=== PATIENT | male | born 1995 | race Caucasian/White ===

== ENCOUNTER 2023-03-29 22:35 | Inpatient (IN) | payer SELFPAY ==
--- NOTE | 2023-03-29 | ECG_ITS ---
Test Reason : CHEST PAIN Blood Pressure : / mmHG Vent. Rate : 137 BPM Atrial Rate : 137 BPM P-R Int : 146 ms QRS Dur : 074 ms QT Int : 280 ms P-R-T Axes : 048 005 000 degrees QTc Int : 422 ms Artifact in tracing Sinus tachycardia Cannot rule out Inferior infarct , age undetermined Nonspecific ST and T wave abnormality Abnormal ECG No previous ECGs available Referred By: Generic ED Physician Electronically Signed By:TIFF DUMONT
[2023-03-29 22:50] VITALS: BP 133/88; PULSE 138; RESP 18; TEMP 37.9; O2SAT 97; BMI 39.9
[2023-03-29 22:55] LABS: MANUAL DIFF FLAG NO
[2023-03-29 22:56] LABS: Basophils Absolute Auto 0.1 X10*3/uL (0.0-0.2); Basophils Percent Auto 0.4 % (0-2); Eosinophils Percent Auto 0.2 % (0-4); Hematocrit 45.4 % (42.0-52.0); Hemoglobin 15.6 g/dl (14.0-18.0); Imm Gran Abs Auto 0.12 X10*3/uL (0.00-0.03); Imm Gran Pct Auto 0.7 % (0.0-0.4); Lymphocytes Absolute Auto 1.4 X10*3/uL (1.2-4.9); Lymphocytes Percent Auto 7.3 % (20-40); Mean Corpuscular HGB Conc 34.4 g/dl (31.0-36.0); Mean Corpuscular Hemoglobin 31.6 pg (27.0-33.0); Mean Corpuscular Volume 92.1 fL (80.0-98.0); Mean Platelet Volume 9.4 fL (9.4-12.4); Monocytes Absolute Auto 0.9 X10*3/uL (0.1-1.2); Monocytes Percent Auto 4.7 % (2-11); Neutrophils Percent Auto 86.7 % (45-73); Platelet Count 358 X10*3/uL (160-400); Red Blood Count 4.93 X10*6/uL (4.60-5.80); Red Cell Distribution Width 13.7 % (11.0-16.0); White Blood Count 18.4 X10*3/uL (4.8-10.8)
[2023-03-29 23:20] LABS: Troponin-I High Sensitivity < 2.7 ng/L (<3.5-35.0)
[2023-03-29 23:21] LABS: Alanine Aminotransferase 71 U/L (0-40); Albumin Level 4.5 g/dL (3.5-5.0); Alkaline Phosphatase 115 U/L (39-117); Anion Gap 26 (12-20); Aspartate Amino Transferase 62 U/L (5-37); Bilirubin Total 0.6 mg/dL (0.0-1.0); Blood Urea Nitrogen 6 mg/dL (9-16); Calcium 8.8 mg/dL (8.4-10.2); Carbon Dioxide 17 mmol/L (22-29); Chloride 97 mmol/L (96-108); Creatinine Clr Calc Pharmacy 161.2; Estimated Glomerular Filt Rate > 60; Glucose Random 92 mg/dL (60-115); Potassium 3.9 mmol/L (3.3-5.1); Sodium 136 mmol/L (135-145); Total Protein 7.8 g/dL (6.5-8.0)
[2023-03-30] VITALS (8 sets, daily range): BP systolic 112–148; BP diastolic 60–81; PULSE 110–150; RESP 18–28; TEMP 36.6–38.9; O2SAT 95–98
--- NOTE | 2023-03-30 01:15 | ED.CHESTPAIN ---
HPI - Chest Pain General Chief Complaint: Chest Pain Stated Complaint: chest palpitations/ blood in stool Time Seen by Provider: 03/30/23 01:11 History of Present Illness HPI narrative: Patient is a 27-year-old male with a history of alcohol abuse. Feels heart palpitation. Generalized malaise weakness. Sore throat. Nausea vomiting. Patient from home. Positive sick contact . 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 Patient also admits to using alcohol tonight. Feels very tired and weak. Related Data Home Medications Medication Instructions Recorded Confirmed No Known Home Meds 03/30/23 03/30/23 Allergies Allergy/AdvReac Type Severity Reaction Status Date / Time No Known Allergies Allergy Verified 03/29/23 22:49 Review of Systems Review of Systems: Positive generalized malaise weakness Yes all other systems are reviewed and are negative [facility] Past Medical History Attestation statement: The following information was validated with the patient. Medical History Alcohol abuse Surgical History (Updated 03/30/23 @ 05:40 by Andrew Shabazz MD) No pertinent past surgical history Social History Social History (Updated 03/30/23 @ 05:40 by Andrew Shabazz MD) Household Members: Family Housing: House Do you presently have visiting nurse or other home services: No Alcohol intake: current Patient Tobacco Use Status: Never used Tobacco Physical Exam Vital Signs: Vital Signs: Last Vital Signs Temp 98.3 F 03/31/23 04:00 Pulse 94 03/31/23 04:00 Resp 18 03/31/23 04:00 BP 132/84 03/31/23 04:00 Pulse Ox 96 03/31/23 04:00 O2 Del Method Room Air 03/31/23 04:00 BMI result Body Mass Index 39.9 Appearance: Alert. Oriented X3. No acute distress. Eyes: Pupils equal, round and reactive to light. ENT: Pharynx normal. Neck: Normal inspection. Neck supple. No lymph nodes noted. No crepitus CVS: Tachycardic and regular Respiratory: No respiratory distress. Breath sounds normal. No Wheezing. No rales Abdomen: Soft and nontender. No rigidity. No distention. good BS x4 Skin: Skin warm and dry. Normal skin color. Normal skin turgor. Extremities: No lower extremity edema. Neurovascular intact to all extremities. No Lacerations. No Rash Neuro: Oriented X 3. No motor deficit. No sensory deficit. Moving all extermities. No slurred speech Medications Administered Generic Name Dose Route Start Last Admin Trade Name Radha PRN Reason Stop Dose Admin Acetaminophen 650 mg 03/30/23 05:32 03/30/23 21:20 Acetaminophen 325 Mg Tablet PO 650 mg Q6H PRN Administration Pain, Mild (Pain Scale 1-3) Amoxicillin 500 mg 03/30/23 06:00 03/31/23 05:58 Amoxicillin 500 Mg Capsule PO 500 mg Q8H VIOLET Administration Enoxaparin Sodium 40 mg 03/30/23 09:00 03/30/23 08:45 Enoxaparin Sodium 40 Mg/0.4 Ml Syringe SUBCUT 40 mg Q24H VIOLET Administration Folic Acid 1 mg 03/30/23 09:00 03/30/23 08:46 Folic Acid 1 Mg Tablet PO 1 mg DAILY VIOLET Administration Lactated Ringer's 1,000 mls @ 100 mls/hr 03/30/23 05:45 03/31/23 00:25 Lr IVCONT 100 mls/hr .Q10H VIOLET Administration Melatonin 6 mg 03/31/23 00:25 03/31/23 01:33 Melatonin 3 Mg Tablet PO 6 mg BEDTIME PRN Administration Insomnia Ondansetron HCl 4 mg 03/30/23 05:32 03/30/23 20:20 Ondansetron Hcl 4 Mg/2 Ml Vial IVPUSH 4 mg Q8H PRN Administration Nausea and Vomiting Pantoprazole Sodium 40 mg 03/30/23 06:30 03/31/23 05:59 Pantoprazole Sodium 40 Mg/10 Ml Vial IVPUSH 40 mg BID@0630,1630 VIOLET Administration Phenobarbital 45 mg 03/30/23 21:00 03/30/23 21:15 Phenobarbital 15 Mg Tablet PO 04/01/23 09:01 45 mg BID VIOLET Administration Protocol Sodium Chloride 3 ml 03/30/23 08:00 03/30/23 21:42 0.9 % Sodium Chloride Flush 3 Ml Syringe IVFLUSH Not Given QSHIFT VIOLET Thiamine HCl 100 mg 03/30/23 09:00 03/30/23 08:46 Thiamine Hcl 100 Mg Tablet PO 100 mg DAILY VIOLET Administration Discontinued Medications Generic Name Dose Route Start Last Admin Trade Name Radha PRN Reason Stop Dose Admin Acetaminophen 650 mg 03/30/23 04:26 03/30/23 04:40 Acetaminophen 325 Mg Tablet PO 03/30/23 04:27 650 mg ONCE ONE Administration Sodium Chloride 2,000 mls @ 999 mls/hr 03/30/23 02:45 03/30/23 06:45 Ns IV 03/30/23 04:45 Infused .Q2H1M VIOLET Infusion Sodium Chloride 1,000 mls @ 999 mls/hr 03/30/23 03:45 03/30/23 06:45 Ns IV 03/30/23 04:45 Infused .Q1H1M VIOLET Infusion Sodium Chloride 1,000 mls @ 999 mls/hr 03/30/23 03:45 03/30/23 06:45 Ns IV 03/30/23 04:45 Infused .Q1H1M VIOLET Infusion Ceftriaxone Sodium 1 gm/ 50 mls @ 100 mls/hr 03/30/23 04:19 03/30/23 06:45 Sodium Chloride IV 03/30/23 04:48 Infused ONCE ONE Infusion Sodium Chloride 1,000 mls @ 999 mls/hr 03/30/23 12:00 03/30/23 13:58 Ns IV 03/30/23 13:00 Infused .Q1H1M VIOLET Infusion Ketorolac Tromethamine 30 mg 03/30/23 04:43 03/30/23 06:35 Ketorolac Tromethamine 30 Mg/Ml Vial IVPUSH 03/30/23 04:44 30 mg ONCE ONE Administration Ondansetron HCl 4 mg 03/30/23 04:37 03/30/23 04:40 Ondansetron Hcl 4 Mg/2 Ml Vial IVPUSH 03/30/23 04:38 4 mg ONCE ONE Administration Phenobarbital Sodium 295.1 mg 03/30/23 06:30 03/30/23 06:42 Phenobarbital Sodium 130 Mg/Ml Im Once IM 03/30/23 06:31 295.1 mg ONCE ONE Administration Protocol Phenobarbital Sodium 221 mg 03/30/23 09:30 03/30/23 11:52 Phenobarbital Sodium 130 Mg/Ml Vial Im Q3hx2 IM 03/30/23 12:31 221 mg Q3H VIOLET Administration Protocol Medical Decision Making Medical Decision Making MDM Narrative: Patient's EKG showed a sinus pattern heart rate is 140 FL QRS QT within normal limits is no acute ST segment patient feels very tired weak. Labs ordered. Shows a significant anion gap of 26. Patient positive ETOH. Alcohol level 333. Likely causing some level of dehydration generalized malaise. Patient has AKA likely causing part of the problem. Will give IV fluids. Patient will be admitted for further evaluation and hydration. Patient's strep came back positive we will give penicillin. Patient not shaking positive tachycardia generalized malaise. Likely caused by dehydration. Less likely to be in withdrawals patient's alcohol is extremely high. Patient has mono screen was negative Differential Diagnosis Differential Diagnoses: The differential diagnosis associated with the presentation includes Strep pharyngitis, viral syndrome, alcoholic ketoacidosis, dehydration, nausea vomiting, alcohol intoxication Admission/Observation Consideration of admission/observation: Escalation of care including admission/observation considered Consult Healthcare Provider Management of the patient was discussed with: Hospitalist Lab Data [facility] Lab Attestation statement: I reviewed the patient's lab results. 03/29/23 22:46 03/29/23 22:46 Labs: Lab Results 03/29/23 03/29/23 03/29/23 Range/Units 22:46 22:46 22:46 WBC 18.4 H (4.8-10.8) X10*3/uL RBC 4.93 (4.60-5.80) X10*6/uL Hgb 15.6 (14.0-18.0) g/dl Hct 45.4 (42.0-52.0) % MCV 92.1 (80.0-98.0) fL MCH 31.6 (27.0-33.0) pg MCHC 34.4 (31.0-36.0) g/dl RDW 13.7 (11.0-16.0) % Plt Count 358 (160-400) X10*3/uL MPV 9.4 (9.4-12.4) fL Immature Gran % (Auto) 0.7 H (0.0-0.4) % Neut % (Auto) 86.7 H (45-73) % Lymph % (Auto) 7.3 L (20-40) % [place] % (Auto) 4.7 (2-11) % Eos % (Auto) 0.2 (0-4) % Baso % (Auto) 0.4 (0-2) % Lymph # (Auto) 1.4 (1.2-4.9) X10*3/uL [place] # (Auto) 0.9 (0.1-1.2) X10*3/uL Eos # (Auto) 0.0 (0.0-0.4) X10*3/uL Baso # (Auto) 0.1 (0.0-0.2) X10*3/uL Abs Immat Gran (auto) 0.12 H (0.00-0.03) X10*3/uL Absolute Neuts (auto) 16.0 H (2.0-8.3) x10*3/uL Absolute Nucleated RBC 0.000 (0.0-0.012) X10*3/uL Nucleated RBC % (auto) 0.0 (0.0-0.2) /100WBC Sodium 136 (135-145) mmol/L Potassium 3.9 (3.3-5.1) mmol/L Chloride 97 (96-108) mmol/L Carbon Dioxide 17 L (22-29) mmol/L Anion Gap 26 H (12-20) BUN 6 L (9-16) mg/dL Creatinine 0.79 (0.5-1.4) mg/dL Estim Creat Clear Calc 161.2 Estimated GFR > 60 Random Glucose 92 (60-115) mg/dL Lactic Acid (0.5-2.0) mmol/L Calcium 8.8 (8.4-10.2) mg/dL Total Bilirubin 0.6 (0.0-1.0) mg/dL AST 62 H (5-37) U/L ALT 71 H (0-40) U/L Alkaline Phosphatase 115 (39-117) U/L Troponin I High Sens < 2.7 (<3.5-35.0) ng/L Total Protein 7.8 (6.5-8.0) g/dL Albumin 4.5 (3.5-5.0) g/dL Lipase 18 (8-78) U/L Ethyl Alcohol 333 H* mg/dL Monoscreen (Negative) S. pyogenes GrpA KENNY (Negative) 03/29/23 03/30/23 03/30/23 Range/Units 22:46 03:09 03:52 WBC (4.8-10.8) X10*3/uL RBC (4.60-5.80) X10*6/uL Hgb (14.0-18.0) g/dl Hct (42.0-52.0) % MCV (80.0-98.0) fL MCH (27.0-33.0) pg MCHC (31.0-36.0) g/dl RDW (11.0-16.0) % Plt Count (160-400) X10*3/uL MPV (9.4-12.4) fL Immature Gran % (Auto) (0.0-0.4) % Neut % (Auto) (45-73) % Lymph % (Auto) (20-40) % [place] % (Auto) (2-11) % Eos % (Auto) (0-4) % Baso % (Auto) (0-2) % Lymph # (Auto) (1.2-4.9) X10*3/uL [place] # (Auto) (0.1-1.2) X10*3/uL Eos # (Auto) (0.0-0.4) X10*3/uL Baso # (Auto) (0.0-0.2) X10*3/uL Abs Immat Gran (auto) (0.00-0.03) X10*3/uL Absolute Neuts (auto) (2.0-8.3) x10*3/uL Absolute Nucleated RBC (0.0-0.012) X10*3/uL Nucleated RBC % (auto) (0.0-0.2) /100WBC Sodium (135-145) mmol/L Potassium (3.3-5.1) mmol/L Chloride (96-108) mmol/L Carbon Dioxide (22-29) mmol/L Anion Gap (12-20) BUN (9-16) mg/dL Creatinine (0.5-1.4) mg/dL Estim Creat Clear Calc Estimated GFR Random Glucose (60-115) mg/dL Lactic Acid 2.9 H* (0.5-2.0) mmol/L Calcium (8.4-10.2) mg/dL Total Bilirubin (0.0-1.0) mg/dL AST (5-37) U/L ALT (0-40) U/L Alkaline Phosphatase (39-117) U/L Troponin I High Sens (<3.5-35.0) ng/L Total Protein (6.5-8.0) g/dL Albumin (3.5-5.0) g/dL Lipase (8-78) U/L Ethyl Alcohol mg/dL Monoscreen Negative (Negative) S. pyogenes GrpA KENNY Positive A (Negative) Discharge Plan Discharge Clinical Impression: Alcoholic ketoacidosis Patient Disposition: Admitted As Inpatient Interventions: Admission Worksheet (ED) Last Done: 03/30/23 08:34 Discharge Date/Time: 03/30/23 08:35
[2023-03-30] MEDS: 0.9 % Sodium Chloride 2,000 ML 999 ML IV (03:03)
[2023-03-30 03:19] LABS: Monotest Negative (Negative)
[2023-03-30 03:23] LABS: IDNOW Serial# 08D9AD1C; Strep A Nucleic Acid Positive (Negative)
[2023-03-30 03:30] LABS: Ethanol 333 mg/dL; Lipase 18 U/L (8-78)
[2023-03-30] MEDS: 0.9 % Sodium Chloride 1,000 ML 999 ML IV ×3 (04:00→12:35)
[2023-03-30 04:12] LABS: Lactic Acid 2.9 mmol/L (0.5-2.0)
[2023-03-30] MEDS: cefTRIAXone sodium 1 GM in 0.9 % Sodium Chloride 50 ML IV (04:29)
--- NOTE | 2023-03-30 04:35 | PC.NURSE ---
Pt red and flushed appearing, oral temp of 102.1, provider Dr. Shea notified new verbal order given.
[2023-03-30] MEDS: Acetaminophen 325 MG TABLET 650 MG PO ×3 (04:40→21:20)
[2023-03-30] MEDS: ondansetron HCL 4 MG/2 ML VIAL IVPUSH ×3 (04:40→20:20)
--- NOTE | 2023-03-30 05:35 | PM.IMHP ---
History of Present Illness Date of Service: 03/30/23 Chief Complaint: Vomiting blood 27-year-old male with no significant past medical history presents to the hospital with complaints of 1 episode of vomiting blood. Patient's family is at bedside. Patient reports that he had 1 episode of vomiting that was streaked with pain blood associated with some epigastric discomfort that has now improved, denies any diarrhea or constipation, no black stools, no urinary symptoms and no lower extremity edema. Patient has been having sore throat, no cough, feeling feverish and chills. Patient's family at bedside and patient himself stated that he has been drinking significant amount of alcohol, including liquor and here, mother at bedside states that she has not been seeing him eating and drinking other liquids or food for the past week. Patient denies any history of withdrawal seizures. Last drink was the night prior to presentation, reports no hallucinations. Denies any chest pain, no headache or change in vision, numbness or tingling. on arrival to the ED patient has a fever of 100.7, heart rate of 141, respiratory rate of 26, blood pressure stable Labs are significant for WBC count of 18.4, lactic acid of 2.9, alcohol level 333, strep pyogenes use positive, Patient given IV antibiotics, IV fluids, will be admitted for further management Review of Systems Review of Systems: Yes all other systems are reviewed and are negative [facility] Medical History Alcohol abuse Surgical History (Updated 03/30/23 @ 05:40 by Andrew Shabazz MD) No pertinent past surgical history Social History (Updated 03/30/23 @ 05:40 by Andrew Shabazz MD) Alcohol intake: current Patient Tobacco Use Status: Never used Tobacco Meds Allergies Allergy/AdvReac Type Severity Reaction Status Date / Time No Known Allergies Allergy Verified 03/29/23 22:49 Physical Exam Vital Signs and Narrative: Vital Signs: Last Vital Signs Temp 102.1 F H 03/30/23 04:27 Pulse 122 H 03/30/23 04:27 Resp 22 H 03/30/23 02:38 BP 148/73 H 03/30/23 02:38 Pulse Ox 97 03/30/23 04:49 O2 Del Method Room Air 03/30/23 04:49 BMI result Body Mass Index 39.9 Const: Other: Diaphoretic, otherwise stable, alert oriented x3, answers questions appropriately General: cooperative and no acute distress Orientation/consciousness: patient oriented x3 Eyes: General: appearance normal, both eyes and all related structures Pupils: Equal, round and reactive pupils present Resp: Effort & Inspection: normal respiratory effort Auscultation: clear to auscultation bilaterally Cardio: Other: Tachycardic Rhythm: regular rhythm GI: Palpation (GI): Soft to palpation Auscultation: normal bowel sounds Skin: General skin exam: no rashes or lesions noted Neuro: General: patient oriented x3 Cranial nerves: Yes Equal, round and reactive pupils present Cognition (Neuro): normal cognition Extrem: General: Yes normal to inspection and Yes no pedal edema Results Labs 03/29/23 22:46 03/29/23 22:46 Labs: Laboratory Results - last 24 hr 03/29/23 03/29/23 03/29/23 22:46 22:46 22:46 MCV 92.1 MCH 31.6 MCHC 34.4 RDW 13.7 Plt Count 358 MPV 9.4 Immature Gran % (Auto) 0.7 H Neut % (Auto) 86.7 H Lymph % (Auto) 7.3 L [place] % (Auto) 4.7 Eos % (Auto) 0.2 Baso % (Auto) 0.4 Lymph # (Auto) 1.4 [place] # (Auto) 0.9 Eos # (Auto) 0.0 Baso # (Auto) 0.1 Abs Immat Gran (auto) 0.12 H Absolute Neuts (auto) 16.0 H Absolute Nucleated RBC 0.000 Nucleated RBC % (auto) 0.0 Anion Gap 26 H Estim Creat Clear Calc 161.2 Estimated GFR > 60 Random Glucose 92 Lactic Acid Calcium 8.8 Total Bilirubin 0.6 AST 62 H ALT 71 H Alkaline Phosphatase 115 Troponin I High Sens < 2.7 Total Protein 7.8 Albumin 4.5 Lipase 18 Ethyl Alcohol 333 H* Monoscreen S. pyogenes GrpA KENNY 03/29/23 03/30/23 03/30/23 22:46 03:09 03:52 MCV MCH MCHC RDW Plt Count MPV Immature Gran % (Auto) Neut % (Auto) Lymph % (Auto) [place] % (Auto) Eos % (Auto) Baso % (Auto) Lymph # (Auto) [place] # (Auto) Eos # (Auto) Baso # (Auto) Abs Immat Gran (auto) Absolute Neuts (auto) Absolute Nucleated RBC Nucleated RBC % (auto) Anion Gap Estim Creat Clear Calc Estimated GFR Random Glucose Lactic Acid 2.9 H* Calcium Total Bilirubin AST ALT Alkaline Phosphatase Troponin I High Sens Total Protein Albumin Lipase Ethyl Alcohol Monoscreen Negative S. pyogenes GrpA KENNY Positive A Assessment and Plan (1) Hematemesis: Status: Acute (2) Alcohol abuse with withdrawal: Status: Acute (3) Alcoholic ketoacidosis: Status: Acute Plan 27-year-old male with past medical history of alcohol abuse presents to the hospital with complaints of hematemesis # one episode of hematemesis - likely secondary to alcohol abuse/gastritis - hemodynamically stable with no significant change in hemoglobin - will treat with pantoprazole IV b.i.d. - as he was 1 episode, will hold off on starting Carafate unless has a repeat - would likely need outpatient follow-up with GI - follow CBC # alcohol abuse with withdrawals - will treat with phenobarb protocol - thiamine and folic acid supplement - care team consulted # alcoholic ketoacidosis - elevated lactic acid, tachycardic, - per family has not been eating or drinking any other liquids except for alcohol for past week - will treat with IV fluids - regular diet - follow lactic acid # lactic acidosis - likely secondary to alcohol abuse - will treat with IV fluids - trend # acute pharyngitis/strep pyogenes positive - will treat with amoxicillin - follow cultures DVT prophylaxis: Lovenox Given patient's need for IV fluids for alcohol ketoacidosis patient will require minimum 2 night inpatient hospital stay for further management Time Spent With Patient Time: Total time managing care of this patient today ____ minutes. Quality Stroke Does the patient have a stroke diagnosis?: No VTE Prior VTE?: No VTE Risk Level:: Medical - moderate - high VTE Device Contraindication: Treatment Not Indicated VTE Drug Contraindication: N/A - Med Ordered
[2023-03-30 05:57] LABS: Reflex Lactate? Lactic Acid Added
[2023-03-30] MEDS: Amoxicillin 500 MG CAPSULE PO ×3 (06:33→21:14)
[2023-03-30] MEDS: Ketorolac Tromethamine 30 MG/ML VIAL IVPUSH (06:35)
[2023-03-30] MEDS: Pantoprazole Sodium 40 MG/10 ML VIAL IVPUSH ×2 (06:37→15:35)
[2023-03-30] MEDS: PHENobarbitaL sodium 130 MG/ML IM ONCE 295.1 MG IM (06:42)
[2023-03-30 07:02] LABS: Basophils Absolute Auto 0.1 X10*3/uL (0.0-0.2); Basophils Percent Auto 0.3 % (0-2); Hematocrit 35.2 % (42.0-52.0); Hemoglobin 12.1 g/dl (14.0-18.0); Imm Gran Abs Auto 0.12 X10*3/uL (0.00-0.03); Imm Gran Pct Auto 0.8 % (0.0-0.4); Lymphocytes Absolute Auto 0.7 X10*3/uL (1.2-4.9); Lymphocytes Percent Auto 4.9 % (20-40); MANUAL DIFF FLAG NO; Mean Corpuscular HGB Conc 34.4 g/dl (31.0-36.0); Mean Corpuscular Hemoglobin 31.8 pg (27.0-33.0); Mean Corpuscular Volume 92.4 fL (80.0-98.0); Mean Platelet Volume 9.3 fL (9.4-12.4); Monocytes Absolute Auto 0.7 X10*3/uL (0.1-1.2); Monocytes Percent Auto 4.3 % (2-11); Neutrophils Absolute Auto 13.4 x10*3/uL (2.0-8.3); Neutrophils Percent Auto 89.7 % (45-73); Platelet Count 238 X10*3/uL (160-400); Red Blood Count 3.81 X10*6/uL (4.60-5.80); Red Cell Distribution Width 13.7 % (11.0-16.0)
[2023-03-30] MEDS: Lactated Ringers 1,000 ML 100 ML IVCONT ×2 (07:36→15:37)
[2023-03-30] MEDS: 0.9 % Sodium Chloride Flush 3 ML SYRINGE IVFLUSH ×2 (07:38→15:35)
[2023-03-30 07:54] LABS: Anion Gap 20 (12-20); Blood Urea Nitrogen 6 mg/dL (9-16); Carbon Dioxide 15 mmol/L (22-29); Chloride 104 mmol/L (96-108); Creatinine Clr Calc Pharmacy 176.9; Estimated Glomerular Filt Rate > 60; Glucose Random 91 mg/dL (60-115); Potassium 3.8 mmol/L (3.3-5.1); Sodium 135 mmol/L (135-145)
[2023-03-30 07:59] LABS: Lactic Acid 2.3 mmol/L (0.5-2.0)
[2023-03-30 08:08] LABS: Calcium 7.4 mg/dL (8.4-10.2)
[2023-03-30] MEDS: PHENobarbitaL sodium 130 MG/ML VIAL IM Q3Hx2 221 MG IM ×2 (08:44→11:52)
[2023-03-30] MEDS: Enoxaparin Sodium 40 MG/0.4 ML SYRINGE SUBCUT (08:45)
[2023-03-30] MEDS: Folic Acid 1 MG TABLET PO (08:46)
[2023-03-30] MEDS: Thiamine HCL 100 MG TABLET PO (08:46)
[2023-03-30 08:58] LABS: Reflex Lactate? Lactic Acid Added
[2023-03-30 09:25] LABS: ~Lactic Acid-LAB USE ONLY 2.4 mmol/L (0.5-2.0)
[2023-03-30 11:09] LABS: Reflex Lactate? 2 Y
--- NOTE | 2023-03-30 11:22 | PHA.MEDREC ---
Pharmacy Consult ? Medication Reconciliation Pharmacy has completed the medication reconciliation.pt confirms no home meds. says he takes ibuprofen very rarely
--- NOTE | 2023-03-30 11:31 | PM.EVENT ---
Event Note Date of Service: 03/30/23 Event Note: Patient seen and evaluated No more incidents of hematemesis throat feels better reports nausea , episode of vomiting with no bleeding Hb dropped down 2/2 dilution Lactic acid still 2.4 give extra bolus of fluids change diet to clears Time Spent With Patient Time: Total time managing care of this patient today ____ minutes.
[2023-03-30 11:45] LABS: ~Lactic Acid-LAB USE ONLY 2.4 mmol/L (0.5-2.0)
--- NOTE | 2023-03-30 14:15 | MHC.RECOVRN ---
Met with pt in 360 after consult placed to Addiction Medicine for alcohol use. Pt laying in bed, awake, alert, easily engages in conversation. Pt reports alcohol use, usually once per week or less. Pt reports the amount of alcohol consumed this weekend is not typical and states I'm never doing that again. I feel like . Pt denies hx AUD, family hx AUD, alcohol withdrawal, AUD tx. Pt reports alcohol use has not interfered with life in the past, has not affected relationships, no legal issues, no work issues. Pt has not ever decided to reduce or abstain from use and had difficulty. Discussed AUD with pt, educated regarding signs/symptoms withdrawal. Provided pt with resources if needed, including education on AUD. Pt denies questions or concerns at this time. Discussed with Alysha Ann APRN.
--- NOTE | 2023-03-30 16:12 | P.EN_ITS ---
Event Note Date of Service: 03/30/23 Event Note: Addiction consult placed Please see career development counselor note from 03/30/23 Time Spent With Patient Time: Total time managing care of this patient today ____ minutes.
--- NOTE | 2023-03-30 16:12 | PM.EVENT ---
Event Note Date of Service: 03/30/23 Event Note: Addiction consult placed Please see patient account specialist note from 03/30/23 Time Spent With Patient Time: Total time managing care of this patient today ____ minutes.
[2023-03-30] MEDS: PHENobarbitaL 15 MG TABLET 45 MG PO (21:15)
[2023-03-31] MEDS: Lactated Ringers 1,000 ML 100 ML IVCONT ×3 (00:25→19:51)
[2023-03-31] MEDS: Melatonin 3 MG TABLET 6 MG PO (01:33)
[2023-03-31 04:00] VITALS: BP 132/84; PULSE 94; RESP 18; TEMP 36.8; O2SAT 96
[2023-03-31 04:55] LABS: Hematocrit 35.7 % (42.0-52.0); Hemoglobin 12.7 g/dl (14.0-18.0); Mean Corpuscular HGB Conc 35.6 g/dl (31.0-36.0); Mean Corpuscular Hemoglobin 32.1 pg (27.0-33.0); Mean Corpuscular Volume 90.2 fL (80.0-98.0); Mean Platelet Volume 10.1 fL (9.4-12.4); Platelet Count 190 X10*3/uL (160-400); Red Blood Count 3.96 X10*6/uL (4.60-5.80); Red Cell Distribution Width 13.2 % (11.0-16.0)
[2023-03-31 05:15] LABS: Anion Gap 11 (12-20); Blood Urea Nitrogen 3 mg/dL (9-16); Carbon Dioxide 24 mmol/L (22-29); Chloride 99 mmol/L (96-108); Creatinine Clr Calc Pharmacy 184.5; Estimated Glomerular Filt Rate > 60; Glucose Random 135 mg/dL (60-115); Potassium 3.2 mmol/L (3.3-5.1); Sodium 131 mmol/L (135-145)
[2023-03-31] MEDS: Amoxicillin 500 MG CAPSULE PO ×3 (05:58→19:51)
[2023-03-31] MEDS: Pantoprazole Sodium 40 MG/10 ML VIAL IVPUSH ×2 (05:59→16:18)
[2023-03-31 07:34] VITALS: BP 148/73; PULSE 86; RESP 18; TEMP 37; O2SAT 96
[2023-03-31] MEDS: ondansetron HCL 4 MG/2 ML VIAL IVPUSH (08:05)
[2023-03-31] MEDS: PHENobarbitaL 15 MG TABLET 45 MG PO ×2 (08:08→19:44)
[2023-03-31] MEDS: Thiamine HCL 100 MG TABLET PO (08:09)
[2023-03-31] MEDS: Folic Acid 1 MG TABLET PO (08:09)
[2023-03-31] MEDS: Acetaminophen 325 MG TABLET 650 MG PO (08:09)
[2023-03-31] MEDS: Enoxaparin Sodium 40 MG/0.4 ML SYRINGE SUBCUT (08:10)
[2023-03-31] MEDS: Potassium Chloride Packet 20 MEQ PACKET 40 MEQ PO (08:10)
[2023-03-31] MEDS: 0.9 % Sodium Chloride Flush 3 ML SYRINGE IVFLUSH ×2 (08:10→16:18)
--- NOTE | 2023-03-31 11:25 | P.PNIM_ITS ---
Subjective Subjective Date of Service: 03/31/23 Interval History: Seen and evaluated Denies hematemesis but reports nausea able to tolerate clears Stable H&H no other overnight events Review of Systems Review of Systems: Yes all other systems are reviewed and are negative Physical Exam 2 Vital Signs: Vital Signs: Last Vital Signs Temp 98.6 F 03/31/23 07:34 Pulse 86 03/31/23 07:34 Resp 18 03/31/23 07:34 BP 148/73 H 03/31/23 07:34 Pulse Ox 96 03/31/23 07:34 O2 Del Method Room Air 03/31/23 07:34 BMI result Body Mass Index 39.9 Const: Other: Constitutional : Awake, interactive, not in distress Neck : Normal inspection, Supple Cardiovascular : RRR, no JVP, no lower extremity edema Respiratory : good bilateral air entry, no crackles, wheezes or rhonchi Gastrointestinal: soft, lax, Normal bowel sounds, Non tender Skin : Warm, Dry Neurological : Alert & oriented x3, No focal deficit , CN 2-12 within normal Objective Data Active Medications Acetaminophen (Acetaminophen 325 Mg Tablet) 650 mg PO Q6H PRN PRN Reason: Pain, Mild (Pain Scale 1-3) Last Admin: 03/31/23 08:09 Dose: 650 mg Documented By: DOUGLAS Amoxicillin (Amoxicillin 500 Mg Capsule) 500 mg PO Q8H [facility] Last Admin: 03/31/23 05:58 Dose: 500 mg Documented By: ANU Docusate Sodium (Docusate Sodium 100 Mg Capsule) 100 mg PO DAILY PRN PRN Reason: Constipation Enoxaparin Sodium (Enoxaparin Sodium 40 Mg/0.4 Ml Syringe) 40 mg SUBCUT Q24H [facility] Last Admin: 03/31/23 08:10 Dose: 40 mg Documented By: DOUGLAS Folic Acid (Folic Acid 1 Mg Tablet) 1 mg PO DAILY [facility] Last Admin: 03/31/23 08:09 Dose: 1 mg Documented By: DOUGLAS Lactated Ringer's (Lr) 1,000 mls @ 100 mls/hr IVCONT .Q10H [facility] Last Admin: 03/31/23 11:06 Dose: 100 mls/hr Documented By: DOUGLAS Melatonin (Melatonin 3 Mg Tablet) 6 mg PO BEDTIME PRN PRN Reason: Insomnia Last Admin: 03/31/23 01:33 Dose: 6 mg Documented By: ANU Ondansetron HCl (Ondansetron Hcl 4 Mg/2 Ml Vial) 4 mg IVPUSH Q8H PRN PRN Reason: Nausea and Vomiting Last Admin: 03/31/23 08:05 Dose: 4 mg Documented By: DOUGLAS Pantoprazole Sodium (Pantoprazole Sodium 40 Mg/10 Ml Vial) 40 mg IVPUSH BID@0630,1630 [facility] Last Admin: 03/31/23 05:59 Dose: 40 mg Documented By: ANU Pharmacy Consult (Consult Rx Etoh Phenob Im/Po) 1 each MISCELLANE ONCE PRN; Protocol PRN Reason: Consult order Phenobarbital (Phenobarbital 15 Mg Tablet) 45 mg PO BID [facility]; Protocol Stop: 04/01/23 09:01 Last Admin: 03/31/23 08:08 Dose: 45 mg Documented By: DOUGLAS Phenobarbital (Phenobarbital 30 Mg Tablet) 30 mg PO BID [facility]; Protocol Stop: 04/03/23 09:01 Phenobarbital (Phenobarbital 15 Mg Tablet) 15 mg PO DAILY [facility]; Protocol Stop: 04/05/23 09:01 Sodium Chloride (0.9 % Sodium Chloride Flush 3 Ml Syringe) [facility] Last Admin: 03/31/23 08:10 Dose: 3 ml Documented By: DOUGLAS Thiamine HCl (Thiamine Hcl 100 Mg Tablet) 100 mg PO DAILY [facility] Last Admin: 03/31/23 08:09 Dose: 100 mg Documented By: DOUGLAS Labs 03/31/23 04:41 03/31/23 04:41 Labs: Laboratory Results - last 24 hr 03/30/23 03/31/23 03/31/23 11:19 04:41 04:41 MCV 90.2 MCH 32.1 MCHC 35.6 RDW 13.2 Plt Count 190 MPV 10.1 Absolute Nucleated RBC 0.000 Nucleated RBC % (auto) 0.0 Anion Gap 11 L Estim Creat Clear Calc 184.5 Estimated GFR > 60 Random Glucose 135 H Lactic Acid F/U @ 4Hr 2.4 H* Calcium 8.0 L D Microbiology Microbiology Results: Microbiology 03/30/23 04:27 Blood Culture - Preliminary Blood - Venous No growth after 24 hours. 05/08/23 04:27 Blood Culture - Preliminary Blood - Venous No growth after 24 hours. Assessment and Plan (1) Hematemesis: Status: Acute (2) Alcohol abuse with withdrawal: Status: Acute (3) Alcoholic ketoacidosis: Status: Acute Plan 27-year-old male with past medical history of alcohol abuse presents to the hospital with complaints of hematemesis # episode of hematemesis likely secondary to alcoholic gastritis\MW tear No recurrence hemodynamically stable with no significant change in hemoglobin pantoprazole IV b.i.d. need outpatient follow-up with GI follow CBC # alcohol abuse with withdrawals phenobarb protocol thiamine and folic acid supplement care team consulted # alcoholic ketoacidosis resolved with IVF regular diet # acute lactic acidosis secondary to alcohol abuse IV fluids # acute pharyngitis/strep pyogenes positive treat with amoxicillin follow cultures DVT prophylaxis: Lovenox Given patient's need for IV fluids for alcohol ketoacidosis patient will require overnight inpatient hospital stay for further management Time Spent With Patient Time: Total time managing care of this patient today ____ minutes. Quality Stroke Does the patient have a stroke diagnosis?: No VTE Prior VTE?: No VTE Risk Level:: Medical - moderate - high VTE Device Contraindication: Treatment Not Indicated VTE Drug Contraindication: N/A - Med Ordered
[2023-03-31 14:56] VITALS: BP 140/85; PULSE 87; RESP 18; TEMP 37.2; O2SAT 98
--- NOTE | 2023-03-31 16:03 | MHC.CM.PN ---
Male 27 DX ETOH Strep thoat He lives in a Duplex, Mother + father live on the other side. He is independent with all functional mobility. 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 He has had a financial consult. If the [facility] insurance does not come thru, Financial software test engineer will work on [employer] application. DP home self care. Family will provide transportation.
[2023-03-31 19:12] VITALS: BP 141/76; PULSE 105; RESP 14; TEMP 37.9; O2SAT 97
[2023-04-01 03:38] VITALS: BP 153/93; PULSE 263; RESP 18; TEMP 36; O2SAT 96
[2023-04-01 04:16] LABS: Glucose, Whole Blood 128 mg/dL (60-115)
[2023-04-01] MEDS: Amoxicillin 500 MG CAPSULE PO ×3 (05:35→19:55)
[2023-04-01 05:42] LABS: Hematocrit 38.5 % (42.0-52.0); Hemoglobin 13.4 g/dl (14.0-18.0); Mean Corpuscular HGB Conc 34.8 g/dl (31.0-36.0); Mean Corpuscular Hemoglobin 31.8 pg (27.0-33.0); Mean Corpuscular Volume 91.2 fL (80.0-98.0); Mean Platelet Volume 10.4 fL (9.4-12.4); Platelet Count 190 X10*3/uL (160-400); Red Blood Count 4.22 X10*6/uL (4.60-5.80); Red Cell Distribution Width 13.1 % (11.0-16.0); White Blood Count 11.2 X10*3/uL (4.8-10.8)
[2023-04-01 06:13] LABS: Anion Gap 13 (12-20); Blood Urea Nitrogen < 3 mg/dL (9-16); Calcium 8.9 mg/dL (8.4-10.2); Carbon Dioxide 28 mmol/L (22-29); Chloride 100 mmol/L (96-108); Creatinine Clr Calc Pharmacy 163.2; Estimated Glomerular Filt Rate > 60; Glucose Random 103 mg/dL (60-115); Potassium 3.8 mmol/L (3.3-5.1); Sodium 137 mmol/L (135-145)
[2023-04-01] MEDS: OLANZapine 10 MG TABLET PO (06:51)
[2023-04-01 07:04] VITALS: BP 147/96; PULSE 94; RESP 16; TEMP 36.1; O2SAT 95
[2023-04-01] MEDS: Enoxaparin Sodium 40 MG/0.4 ML SYRINGE SUBCUT (08:54)
[2023-04-01] MEDS: PHENobarbitaL 15 MG TABLET 45 MG PO (08:55)
[2023-04-01] MEDS: Thiamine HCL 100 MG TABLET PO (08:55)
[2023-04-01] MEDS: Folic Acid 1 MG TABLET PO (08:55)
--- NOTE | 2023-04-01 10:40 | HO.PM.IMPN ---
Subjective Subjective Date of Service: 04/01/23 Interval History: less shaky Physical Exam Vital Signs: Vital Signs: Last Vital Signs Temp 97 F 04/01/23 07:04 Pulse 94 04/01/23 07:04 Resp 16 04/01/23 07:04 BP 147/96 H 04/01/23 07:04 Pulse Ox 95 04/01/23 07:04 O2 Del Method Room Air 04/01/23 07:04 BMI result Body Mass Index 39.9 tremulous, ao*3 Objective Data Active Medications Acetaminophen (Acetaminophen 325 Mg Tablet) 650 mg PO Q6H PRN PRN Reason: Pain, Mild (Pain Scale 1-3) Last Admin: 03/31/23 08:09 Dose: 650 mg Documented By: DOUGLAS Amoxicillin (Amoxicillin 500 Mg Capsule) 500 mg PO Q8H [facility], [facility] Last Admin: 04/01/23 05:35 Dose: 500 mg Documented By: LESLY Docusate Sodium (Docusate Sodium 100 Mg Capsule) 100 mg PO DAILY PRN PRN Reason: Constipation Enoxaparin Sodium (Enoxaparin Sodium 40 Mg/0.4 Ml Syringe) 40 mg SUBCUT Q24H [facility], [facility] Last Admin: 04/01/23 08:54 Dose: 40 mg Documented By: DOUGLAS Folic Acid (Folic Acid 1 Mg Tablet) 1 mg PO DAILY [facility] Last Admin: 04/01/23 08:55 Dose: 1 mg Documented By: DOUGLAS Lactated Ringer's (Lr) 1,000 mls @ 100 mls/hr IVCONT .Q10H [facility], [facility] Last Admin: 04/01/23 10:10 Dose: Not Given Documented By: DOUGLAS Non-Admin Reason: No Access Melatonin (Melatonin 3 Mg Tablet) 6 mg PO BEDTIME PRN PRN Reason: Insomnia Last Admin: 03/31/23 01:33 Dose: 6 mg Documented By: ANU Ondansetron HCl (Ondansetron Hcl 4 Mg/2 Ml Vial) 4 mg IVPUSH Q8H PRN PRN Reason: Nausea and Vomiting Last Admin: 03/31/23 08:05 Dose: 4 mg Documented By: DOUGLAS Pharmacy Consult (Consult Rx Etoh Phenob Im/Po) 1 each MISCELLANE ONCE PRN; Protocol PRN Reason: Consult order Phenobarbital (Phenobarbital 30 Mg Tablet) 30 mg PO BID [facility]; Protocol Stop: 04/03/23 09:01 Phenobarbital (Phenobarbital 15 Mg Tablet) 15 mg PO DAILY [facility]; Protocol Stop: 04/05/23 09:01 Sodium Chloride (0.9 % Sodium Chloride Flush 3 Ml Syringe) 3 ml IVFLUSH QSHIFT [facility] Last Admin: 04/01/23 08:49 Dose: Not Given Documented By: DOUGLAS Non-Admin Reason: No Access Thiamine HCl (Thiamine Hcl 100 Mg Tablet) 100 mg PO DAILY [facility] Last Admin: 04/01/23 08:55 Dose: 100 mg Documented By: DOUGLAS Labs 04/01/23 05:27 04/01/23 05:27 Labs: Laboratory Results - last 24 hr 04/01/23 04/01/23 04/01/23 04:12 05:27 05:27 MCV 91.2 MCH 31.8 MCHC 34.8 RDW 13.1 Plt Count 190 MPV 10.4 Absolute Nucleated RBC 0.000 Nucleated RBC % (auto) 0.0 Anion Gap 13 Estim Creat Clear Calc 163.2 Estimated GFR > 60 POC Glucose 128 H Random Glucose 103 Calcium 8.9 D Microbiology Microbiology Results: Microbiology 03/30/23 04:27 Blood Culture - Preliminary Blood - Venous No growth after 48 hours. 03/30/23 04:27 Blood Culture - Preliminary Blood - Venous No growth after 48 hours. Assessment and Plan (1) Hematemesis: Status: Acute (2) Alcohol abuse with withdrawal: Status: Acute (3) Alcoholic ketoacidosis: Status: Acute Plan 27M PMH of alcohol dependence presented with hematemesis hematemesis likely secondary to alcoholic gastritis\MW tear No recurrence hemodynamically stable with no significant change in hemoglobin ppi po outpatient follow-up with GI styable CBC alcohol dependence with withdrawal phenobarb protocol thiamine and folic acid supplement alcoholic ketoacidosis resolved acute lactic acidosis secondary to alcohol abuse acute pharyngitis/strep pyogenes positive amoxicillin DVT prophylaxis: Lovenox full code reason for continued hospitalization:active withdrawal Time Spent With Patient Time: Total time managing care of this patient today ____ minutes. Quality Stroke Does the patient have a stroke diagnosis?: No VTE Prior VTE?: No VTE Risk Level:: Medical - moderate - high VTE Device Contraindication: Treatment Not Indicated VTE Drug Contraindication: N/A - Med Ordered
--- NOTE | 2023-04-01 14:23 | MHC.CM.PN ---
Patient scored 7- 25 on the CIWA scale earlier today. He is at 0 on the CIWA scale now. Patient has met with the recovery team. DP Home with community resources provided by the Recovery team. Patient will arrange for family transport at discharge.
[2023-04-01] MEDS: Omeprazole 20 MG CAPSULE.DR PO (15:14)
[2023-04-01 15:39] VITALS: BP 146/96; PULSE 116; RESP 18; TEMP 37.5; O2SAT 92
[2023-04-01] MEDS: PHENobarbitaL 30 MG TABLET PO (19:55)
[2023-04-01 19:59] VITALS: BP 140/70; PULSE 110; RESP 17; TEMP 37.1; O2SAT 95
[2023-04-01] MEDS: Acetaminophen 325 MG TABLET 650 MG PO (19:59)
[2023-04-02 04:00] VITALS: BP 144/78; PULSE 102; RESP 18; TEMP 37.6; O2SAT 94
[2023-04-02] MEDS: Amoxicillin 500 MG CAPSULE PO ×3 (04:14→21:10)
[2023-04-02] MEDS: Acetaminophen 325 MG TABLET 650 MG PO (04:14)
[2023-04-02 06:38] LABS: Hematocrit 38.8 % (42.0-52.0); Hemoglobin 13.6 g/dl (14.0-18.0); Mean Corpuscular HGB Conc 35.1 g/dl (31.0-36.0); Mean Corpuscular Volume 91.3 fL (80.0-98.0); Mean Platelet Volume 10.6 fL (9.4-12.4); Platelet Count 181 X10*3/uL (160-400); Red Blood Count 4.25 X10*6/uL (4.60-5.80); Red Cell Distribution Width 13.4 % (11.0-16.0); White Blood Count 10.6 X10*3/uL (4.8-10.8)
[2023-04-02 07:03] LABS: Blood Urea Nitrogen 4 mg/dL (9-16); Calcium 8.3 mg/dL (8.4-10.2); Creatinine Clr Calc Pharmacy 190.1; Estimated Glomerular Filt Rate > 60; Glucose Fasting 110 mg/dL (60-99)
[2023-04-02 07:15] VITALS: BP 121/73; PULSE 80; RESP 16; TEMP 35.9; O2SAT 94
[2023-04-02 07:16] LABS: Anion Gap 13 (12-20); Carbon Dioxide 25 mmol/L (22-29); Chloride 102 mmol/L (96-108); Sodium 137 mmol/L (135-145)
[2023-04-02] MEDS: PHENobarbitaL 30 MG TABLET PO ×2 (09:03→19:58)
[2023-04-02] MEDS: Enoxaparin Sodium 40 MG/0.4 ML SYRINGE SUBCUT (09:03)
[2023-04-02] MEDS: 0.9 % Sodium Chloride Flush 3 ML SYRINGE IVFLUSH ×2 (09:03→15:28)
[2023-04-02] MEDS: Thiamine HCL 100 MG TABLET PO (09:04)
[2023-04-02] MEDS: Potassium Chloride ER 20 MEQ TAB.ER.PRT 40 MEQ PO (09:04)
[2023-04-02] MEDS: Folic Acid 1 MG TABLET PO (09:04)
--- NOTE | 2023-04-02 11:58 | HO.PM.IMPN ---
Subjective Subjective Date of Service: 04/02/23 Interval History: less shaky Physical Exam Vital Signs: Vital Signs: Last Vital Signs Temp 96.7 F L 04/02/23 07:15 Pulse 80 04/02/23 07:15 Resp 16 04/02/23 07:15 BP 121/73 04/02/23 07:15 Pulse Ox 94 04/02/23 07:15 O2 Del Method Room Air 04/02/23 07:15 BMI result Body Mass Index 39.9 ao*3 Objective Data Active Medications Acetaminophen (Acetaminophen 325 Mg Tablet) 650 mg PO Q6H PRN PRN Reason: Pain, Mild (Pain Scale 1-3) Last Admin: 04/02/23 04:14 Dose: 650 mg Documented By: LESLY Amoxicillin (Amoxicillin 500 Mg Capsule) 500 mg PO Q8H [facility] Last Admin: 04/02/23 04:14 Dose: 500 mg Documented By: LESLY Docusate Sodium (Docusate Sodium 100 Mg Capsule) 100 mg PO DAILY PRN PRN Reason: Constipation Enoxaparin Sodium (Enoxaparin Sodium 40 Mg/0.4 Ml Syringe) 40 mg SUBCUT Q24H [facility] Last Admin: 04/02/23 09:03 Dose: 40 mg Documented By: JORGE LUIS Folic Acid (Folic Acid 1 Mg Tablet) 1 mg PO DAILY [facility] Last Admin: 04/02/23 09:04 Dose: 1 mg Documented By: JORGE LUIS Melatonin (Melatonin 3 Mg Tablet) 6 mg PO BEDTIME PRN PRN Reason: Insomnia Last Admin: 03/31/23 01:33 Dose: 6 mg Documented By: ANU Omeprazole (Omeprazole 20 Mg Capsule.) 20 mg PO BID@0630,1630 [facility] Last Admin: 04/02/23 04:17 Dose: Not Given Documented By: LESLY Non-Admin Reason: Patient Refused Ondansetron HCl (Ondansetron Hcl 4 Mg/2 Ml Vial) 4 mg IVPUSH Q8H PRN PRN Reason: Nausea and Vomiting Last Admin: 03/31/23 08:05 Dose: 4 mg Documented By: DOUGLAS Pharmacy Consult (Consult Rx Etoh Phenob Im/Po) 1 each MISCELLANE ONCE PRN; Protocol PRN Reason: Consult order Phenobarbital (Phenobarbital 30 Mg Tablet) 30 mg PO BID [facility]; Protocol Stop: 04/03/23 09:01 Last Admin: 04/02/23 09:03 Dose: 30 mg Documented By: JORGE LUIS Phenobarbital (Phenobarbital 15 Mg Tablet) 15 mg PO DAILY [facility]; Protocol Stop: 04/05/23 09:01 Sodium Chloride (0.9 % Sodium Chloride Flush 3 Ml Syringe) 3 ml IVFLUSH QSHIFT [facility] Last Admin: 04/02/23 09:03 Dose: 3 ml Documented By: JORGE LUIS Thiamine HCl (Thiamine Hcl 100 Mg Tablet) 100 mg PO DAILY [facility] Last Admin: 04/02/23 09:04 Dose: 100 mg Documented By: JORGE LUIS Labs 04/02/23 05:43 04/02/23 05:43 Labs: Laboratory Results - last 24 hr 04/02/23 04/02/23 05:43 05:43 MCV 91.3 MCH 32.0 MCHC 35.1 RDW 13.4 Plt Count 181 MPV 10.6 Absolute Nucleated RBC 0.000 Nucleated RBC % (auto) 0.0 Anion Gap 13 Estim Creat Clear Calc 190.1 Estimated GFR > 60 Fasting Glucose 110 H Calcium 8.3 L D Assessment and Plan (1) Hematemesis: Status: Acute (2) Alcohol abuse with withdrawal: Status: Acute (3) Alcoholic ketoacidosis: Status: Acute Plan 27M PMH of alcohol dependence presented with hematemesis hematemesis likely secondary to alcoholic gastritis\MW tear No recurrence hemodynamically stable with no significant change in hemoglobin ppi po outpatient follow-up with GI styable CBC alcohol dependence with withdrawal phenobarb protocol thiamine and folic acid supplement alcoholic ketoacidosis resolved acute lactic acidosis secondary to alcohol abuse acute pharyngitis/strep pyogenes positive amoxicillin DVT prophylaxis: Lovenox full code reason for continued hospitalization:still tachy, not feeling well Time Spent With Patient Time: Total time managing care of this patient today ____ minutes. Quality Stroke Does the patient have a stroke diagnosis?: No VTE Prior VTE?: No VTE Risk Level:: Medical - moderate - high VTE Device Contraindication: Treatment Not Indicated VTE Drug Contraindication: N/A - Med Ordered
[2023-04-02] MEDS: Omeprazole 20 MG CAPSULE.DR PO (15:28)
[2023-04-02 15:33] VITALS: BP 139/95; PULSE 92; RESP 20; TEMP 37.4; O2SAT 96
[2023-04-02 19:33] VITALS: BP 127/74; PULSE 93; RESP 18; TEMP 37.3; O2SAT 93
[2023-04-03 03:13] VITALS: BP 142/88; PULSE 92; RESP 14; TEMP 37.3; O2SAT 96
[2023-04-03] MEDS: Acetaminophen 325 MG TABLET 650 MG PO (03:56)
[2023-04-03] MEDS: Melatonin 3 MG TABLET 6 MG PO (03:59)
[2023-04-03] MEDS: Omeprazole 20 MG CAPSULE.DR PO (05:57)
[2023-04-03] MEDS: Amoxicillin 500 MG CAPSULE PO (05:57)
[2023-04-03 07:06] VITALS: BP 132/64; PULSE 69; RESP 18; TEMP 37.2; O2SAT 95
--- NOTE | 2023-04-03 08:17 | P.CDIM_ITS ---
PROVIDER RESPONSE TEXT: To clarify, the appropriate diagnosis supported by the clinical indicators: Labs indicate a diagnosis of (please specify): hypokalemia QUERY TEXT: PHYSICIAN'S DOCUMENTATION REQUEST Date of Query: 04/03/2023 08:05 AM EDT Patient Name: Ahmet Donnelly Admit Date: 03/30/2023 Dear Marcio Duong, A review of the medical record indicates additional documentation may be needed. Please review below and update the documentation accordingly. Clinical Indicators: The following diagnoses or signs and symptoms were noted in the patient record: Per Hospitalist Progress Note 04/02/23: still tachy, not feeling well potassium on 04/02/23: 3.0 Treated with Klor-Con 40 mEq po once Based on the above, could you clarify the appropriate diagnosis, if significant, that supports the ab ove abnormalities and additional evaluation, monitoring, and/or treatment rendered: Labs indicate a diagnosis of (please specify) Other (explain) Clinically unable to determine (explain) Thank you, Lisa Osei RN Use of terms such as suspected, likely, concern for, or probable (associated with a specific diagnosi s that is being evaluated, monitored, or treated as if it exists) are acceptable and can be coded in the inpatient se tting, when documented at the time of discharge. Please use your independent medical judgment in providing your response. THIS QUERY IS PART OF THE PERMANENT MEDICAL RECORD
--- NOTE | 2023-04-03 08:38 | PM.DS ---
DS: Providers Provider Date of Service: 04/03/23 Date of admission: 03/30/23 05:34 Primary care physician: Andrey Jolley DO Consults: 03/30/23 05:32 Addiction Medicine Routine Consulting Provider: Addiction Covering Reason for consultation: alcohol abuse Has provider been notified: No DS: Diagnosis Discharge Diagnosis (1) Hematemesis: Status: Acute (2) Alcohol abuse with withdrawal: Status: Acute (3) Alcoholic ketoacidosis: Status: Acute DS: Summary Hospital Course Hospital Course: from initial hpi: 27-year-old male with no significant past medical history presents to the hospital with complaints of 1 episode of vomiting blood.? Patient's family is at bedside.? Patient reports that he had 1 episode of vomiting that was streaked with pain blood associated with some epigastric discomfort that has now improved, denies any diarrhea or constipation, no black stools, no urinary symptoms and no lower extremity edema.? Patient has been having sore throat, no cough, feeling feverish and chills.? Patient's family at bedside and patient himself stated that he has been drinking significant amount of alcohol, including liquor and here, mother at bedside states that she has not been seeing him eating and drinking other liquids or food for the past week.? Patient denies any history of withdrawal seizures.? Last drink was the night prior to presentation, reports no hallucinations.? Denies any chest pain, no headache or change in vision, numbness or tingling.? ?on arrival to the ED patient has a fever of 100.7, heart rate of 141, respiratory rate of 26, blood pressure stable Labs are significant for WBC count of 18.4, lactic acid of 2.9, alcohol level 333, strep pyogenes use positive, Patient given IV antibiotics, IV fluids, will be admitted for further management hospital course: patient was admitted for alcohol dependence with withdrawal complicated by hematemesis due to alcoholic gastritis/ching urias tear, alcoholic ketoacidosis, acute lactic acidosis. he was given, ivf, ppi and phenobarb, eventually symptoms subsided. educated on etoh abstinnce. also noted to have acute strep pharyngitis, treated with amoxil. Time Spent with Patient Time attestation: Total time managing care of this patient today ____ minutes. Discharge coordination time: Greater than 30 minutes Quality: Safe Use of Opioids Does Pt have an Active Cancer Diagnosis on the Problem List?: No Quality: Stroke Does the patient have a stroke diagnosis?: No Physical Exam Vital Signs: Vital Signs: Last Vital Signs Temp 99 F 04/03/23 07:06 Pulse 69 04/03/23 07:06 Resp 18 04/03/23 07:06 BP 132/64 04/03/23 07:06 Pulse Ox 95 04/03/23 07:06 O2 Del Method Room Air 04/03/23 07:06 BMI result Body Mass Index 39.9 General: AO X 3, no acute distress Resp: CTA bilateral, no accessory muscles used CVS: S1,S2,RRR GI: soft, non tender, non distended Neuro: motor grossly intact, alert Psych: appropriate affect, appropriate insight DS: Data Data Completed and Pending Labs on day of discharge: Preliminary micro results at discharge 03/30/23 04:27 Blood Culture - Preliminary Blood - Venous No growth after 48 hours. 03/30/23 04:27 Blood Culture - Preliminary Blood - Venous No growth after 48 hours. Discharge Plan Discharge Anticipated Discharge Date/Time: 04/03/23 08:26 Patient Disposition: Home, Self-Care Discharge Diagnosis: etoh withdrawal Referrals: Andrey Jolley DO [Primary Care Provider] - 1 Week Discharge Medications: New amoxicillin 500 mg Capsule 500 mg PO Q8H Qty: 15 0RF Discharge Orders: Discharge Order (Routine); Ordered 04/03/23 Ordered By: Marcio Duong Diet: Advance to usual diet Activity on Discharge: As tolerated Stand Alone Forms: Patient Portal Discharge page, Work/School Release Care Plan Goals: recovery Health Concerns: etoh, strep Plan of Treatment: no etoh, amoxil 3 more days Assessment: see above
[2023-04-03] MEDS: 0.9 % Sodium Chloride Flush 3 ML SYRINGE IVFLUSH (08:53)
[2023-04-03] MEDS: Enoxaparin Sodium 40 MG/0.4 ML SYRINGE SUBCUT (08:53)
[2023-04-03] MEDS: Folic Acid 1 MG TABLET PO (08:53)
[2023-04-03] MEDS: PHENobarbitaL 30 MG TABLET PO (08:53)
[2023-04-03] MEDS: Thiamine HCL 100 MG TABLET PO (08:55)
== END 2023-04-03 10:29 | disposition home or self-care (01) | DRG 378 ==
LOC: HO.ED 03-30 01:21 → HO.EDOVER 03-30 05:40 → HO.S3 03-30 07:41
PROVIDERS: Student in an Organized Health Care Education/Training Program; Admitting Provider Internal Medicine; Emergency Provider Emergency Medicine Emergency Medical Services; PCP Pediatrics; Visit Provider Internal Medicine
DX: K29.21 Alcoholic gastritis with bleeding (principal); E87.21 Acute metabolic acidosis; F10.239 Alcohol dependence with withdrawal, unspecified; Y90.8 Blood alcohol level of 240 mg/100 ml or more; K22.6 Gastro-esophageal laceration-hemorrhage syndrome; E86.0 Dehydration; J02.0 Streptococcal pharyngitis; E87.6 Hypokalemia
CPT/HCPCS: 36415; 80048; 80053; 80307; 82947; 83605; 83690; 84484; 85025; 85027; 86308; 87040; 87651; 93005; 99285; J0696; J1650; J1885; J2405; J2560

== ENCOUNTER 2025-03-25 03:25 | Emergency (ER) | payer OTHER, SELFPAY ==
--- NOTE | 2025-03-25 | ECG_ITS ---
Test Reason : CHEST PX Blood Pressure : */* mmHG Vent. Rate : 78 BPM Atrial Rate : 78 BPM P-R Int : 168 ms QRS Dur : 90 ms QT Int : 388 ms P-R-T Axes : 37 17 13 degrees QTcB Int : 442 ms Normal sinus rhythm Normal ECG When compared with ECG of 29-Mar-2023 22:41, Vent. rate has decreased by 59 bpm Minimal criteria for Inferior infarct are no longer Present Nonspecific T wave abnormality no longer evident in Anterolateral leads Referred By: Generic ED Physician Electronically Signed By: Krystian Childs
--- NOTE | ~2025-03-25 | XR_ITS ---
CLINICAL HISTORY: cp 2 view chest x-ray. Comparison: None Findings: The lungs appear clear. There is no consolidation, effusion, or pneumothorax. Cardiomediastinal silhouette is within normal limits. IMPRESSION: No acute cardiopulmonary abnormality. This document has been electronically signed by: Pedro Luis Fitch MD on 03/25/2025 04:40:40
[2025-03-25 03:29] VITALS: BP 122/74; BP 133/80; PULSE 83; PULSE 86; RESP 22; TEMP 37.1; O2SAT 96; O2SAT 97; BMI 43.5
[2025-03-25 03:55] LABS: MANUAL DIFF FLAG NO
[2025-03-25 03:59] LABS: Basophils Absolute Auto 0.1 X10*3/uL (0.0-0.2); Basophils Percent Auto 0.7 % (0-2); Eosinophils Absolute Auto 0.2 X10*3/uL (0.0-0.4); Eosinophils Percent Auto 2.2 % (0-4); Hematocrit 42.7 % (42.0-52.0); Hemoglobin 14.7 g/dl (14.0-18.0); Imm Gran Abs Auto 0.07 X10*3/uL (0.00-0.03); Imm Gran Pct Auto 0.8 % (0.0-0.4); Lymphocytes Absolute Auto 2.7 X10*3/uL (1.2-4.9); Lymphocytes Percent Auto 30.5 % (20-40); Mean Corpuscular HGB Conc 34.4 g/dl (31.0-36.0); Mean Corpuscular Hemoglobin 28.7 pg (27.0-33.0); Mean Corpuscular Volume 83.2 fL (80.0-98.0); Monocytes Absolute Auto 0.8 X10*3/uL (0.1-1.2); Monocytes Percent Auto 8.5 % (2-11); Neutrophils Absolute Auto 5.1 x10*3/uL (2.0-8.3); Neutrophils Percent Auto 57.3 % (45-73); Platelet Count 274 X10*3/uL (160-400); Red Blood Count 5.13 X10*6/uL (4.60-5.80); Red Cell Distribution Width 13.2 % (11.0-16.0); White Blood Count 8.9 X10*3/uL (4.8-10.8)
[2025-03-25 04:22] LABS: Alanine Aminotransferase 179 U/L (0-40); Albumin Level 4.2 g/dL (3.5-5.0); Alkaline Phosphatase 84 U/L (39-117); Anion Gap 13 (12-20); Aspartate Amino Transferase 177 U/L (5-37); Bilirubin Total 0.6 mg/dL (0.0-1.0); Blood Urea Nitrogen 17 mg/dL (9-16); Calcium 9.4 mg/dL (8.4-10.2); Carbon Dioxide 26 mmol/L (22-29); Chloride 105 mmol/L (96-108); Creatinine Clr Calc Pharmacy 168.1; Estimated Glomerular Filt Rate > 60; Glucose Random 99 mg/dL (60-115); Potassium 4.1 mmol/L (3.3-5.1); Sodium 140 mmol/L (135-145); Troponin-I High Sensitivity < 2.7 ng/L (<3.5-35.0)
--- NOTE | 2025-03-25 05:35 | ED_ITS ---
HPI - Chest Pain General Chief Complaint: Chest Pain Stated Complaint: Sharp pain in chest for 10 seconds Time Seen by Provider: 03/25/25 04:38 Source: patient Mode of arrival: ambulatory Limitations: no limitations History of Present Illness ED Provider: HPI narrative: Patient's history of anxiety noticed sharp chest pain prior to arrival lasted for 10-15 seconds patient was very anxious at that time patient took 40 mg of Percocet and 200 mg of mushroom prior to arrival for the knee pain history of similar pain with anxiety in the past no family history of sudden cardiac no history of cocaine use Related Data Previous Rx's ?Medication ?Instructions ?Recorded amoxicillin 500 mg capsule 500 mg PO Q8H #15 caps 04/03/23 Allergies Allergy/AdvReac Type Severity Reaction Status Date / Time No Known Allergies Allergy Verified 03/25/25 03:33 Review of Systems 2 Review of Systems: Yes all other systems are reviewed and are negative [facility] Past Medical History Medical History Alcohol abuse Surgical History No pertinent past surgical history Social History Social History Household Members: Family Housing: House Do you presently have visiting nurse or other home services: No Alcohol intake: current Patient Tobacco Use Status: Never used Tobacco Advance Directives: No Advance Directives Information Provided: Yes service: Yes Current occupational status: employed Physical Exam 2 Vital Signs: Vital Signs: Last Vital Signs Temp 98.8 F 03/25/25 03:29 Pulse 83 03/25/25 03:29 Resp 22 H 03/25/25 03:29 BP 133/80 03/25/25 03:29 Pulse Ox 97 03/25/25 03:29 O2 Del Method Room Air 03/25/25 03:29 BMI result Body Mass Index 43.5 Appearance: Alert. Oriented X3. No acute distress. Anxious Eyes: No pallor or icterus ENT: Pharynx normal. Oral Mucosa moist Neck: Normal inspection. Neck supple. CVS: Normal heart rate and rhythm. Pulses normal. Respiratory: No respiratory distress. Equal air entry bilateral, no wheezing/rales/rhonchi Abdomen: Soft and nontender. Bowel sounds are present, no mass palpable, no CVA tenderness Skin: Skin warm and dry. Normal skin color. Normal skin turgor. Extremities: No lower extremity edema. No calf tenderness Neuro: Oriented X 3. No motor deficit. No sensory deficit.No cerebellar signs , cranial nerves II-XII intact Medical Decision Making Medical Decision Making [facility] Narrative: Patient has atypical chest pain with anxiety heart score of 0 cardiac enzymes and negative EKG without any ischemic changes Lab Data [facility] Lab Attestation statement: I reviewed the patient's lab results. 03/25/25 03:51 03/25/25 03:51 Labs: Lab Results 03/25/25 Range/Units 03:51 WBC 8.9 (4.8-10.8) X10*3/uL RBC 5.13 D (4.60-5.80) X10*6/uL Hgb 14.7 (14.0-18.0) g/dl Hct 42.7 (42.0-52.0) % MCV 83.2 (80.0-98.0) fL MCH 28.7 (27.0-33.0) pg MCHC 34.4 (31.0-36.0) g/dl RDW 13.2 (11.0-16.0) % Plt Count 274 D (160-400) X10*3/uL MPV 10.0 (9.4-12.4) fL Immature Gran % (Auto) 0.8 H (0.0-0.4) % Neut % (Auto) 57.3 (45-73) % Lymph % (Auto) 30.5 (20-40) % [place] % (Auto) 8.5 (2-11) % Eos % (Auto) 2.2 (0-4) % Baso % (Auto) 0.7 (0-2) % Lymph # (Auto) 2.7 (1.2-4.9) X10*3/uL [place] # (Auto) 0.8 (0.1-1.2) X10*3/uL Eos # (Auto) 0.2 (0.0-0.4) X10*3/uL Baso # (Auto) 0.1 (0.0-0.2) X10*3/uL Abs Immat Gran (auto) 0.07 H (0.00-0.03) X10*3/uL Absolute Neuts (auto) 5.1 (2.0-8.3) x10*3/uL Absolute Nucleated RBC 0.000 (0.0-0.012) X10*3/uL Nucleated RBC % (auto) 0.0 (0.0-0.2) /100WBC Sodium 140 (135-145) mmol/L Potassium 4.1 (3.3-5.1) mmol/L Chloride 105 (96-108) mmol/L Carbon Dioxide 26 (22-29) mmol/L Anion Gap 13 (12-20) BUN 17 H (9-16) mg/dL Creatinine 0.78 (0.5-1.4) mg/dL Estim Creat Clear Calc 168.1 Estimated GFR > 60 Random Glucose 99 (60-115) mg/dL Calcium 9.4 D (8.4-10.2) mg/dL Total Bilirubin 0.6 (0.0-1.0) mg/dL AST 177 H (5-37) U/L ALT 179 H (0-40) U/L Alkaline Phosphatase 84 (39-117) U/L Troponin I High Sens < 2.7 (<3.5-35.0) ng/L Total Protein 7.0 (6.5-8.0) g/dL Albumin 4.2 (3.5-5.0) g/dL Independent Interpretation I performed an independent interpretation of an: EKG Interpretation: Normal sinus rhythm heart rate 78 beats per minute normal interval normal axis no acute STT wave changes impression normal EKG Discharge Plan Discharge Clinical Impression: Atypical chest pain, Anxiety Patient Disposition: Home, Self-Care Instructions: Noncardiac Chest Pain (ED), Anxiety (ED) Additional Instructions: Your chest pain likely from anxiety/musculoskeletal Your blood report and cardiogram are normal Follow with your PCP as needed Prescriptions: No Action amoxicillin 500 mg Capsule 500 mg PO Q8H Qty: 15 0RF Print Language: Macanese
[2025-03-25 06:20] VITALS: BP 133/80; PULSE 83; RESP 22; TEMP 37.1; O2SAT 97
== END 2025-03-25 05:30 | disposition home or self-care (01) ==
PROVIDERS: Emergency Provider Internal Medicine; PCP Internal Medicine
DX: R07.89 Other chest pain (principal); F41.9 Anxiety disorder, unspecified
CPT/HCPCS: 36415; 71046; 80053; 84484; 85025; 93005; 99283

== ENCOUNTER → 2025-03-25 03:40 | Outpatient (BNV) | payer SELFPAY | PROVIDERS: Emergency Provider Internal Medicine; PCP Internal Medicine; Visit Provider Internal Medicine Cardiovascular Disease | DX: R07.9 Chest pain, unspecified (principal) | CPT/HCPCS: 93010 ==

== ENCOUNTER → 2025-03-25 04:04 | Outpatient (BNV) | payer SELFPAY | PROVIDERS: Emergency Provider Internal Medicine; Visit Provider Radiology Diagnostic Radiology | DX: R07.9 Chest pain, unspecified (principal) | CPT/HCPCS: 71046 ==

== ENCOUNTER 2025-05-30 01:21 | Emergency (ER) | payer OTHER, SELFPAY ==
[2025-05-30 01:41] VITALS: BP 142/90; BP 144/84; PULSE 75; PULSE 80; RESP 18; TEMP 36.1; O2SAT 97; BMI 41.6
[2025-05-30 02:19] LABS: Hematocrit 44.1 % (42.0-52.0); Hemoglobin 15.4 g/dl (14.0-18.0); Imm Gran Abs Auto 0.05 X10*3/uL (0.00-0.03); Imm Gran Pct Auto 0.7 % (0.0-0.4); Lymphocytes Absolute Auto 1.6 X10*3/uL (1.2-4.9); MANUAL DIFF FLAG NO; Mean Corpuscular HGB Conc 34.9 g/dl (31.0-36.0); Mean Corpuscular Hemoglobin 29.0 pg (27.0-33.0); Mean Corpuscular Volume 83.1 fL (80.0-98.0); NRBC Abs Auto 0.000 X10*3/uL (0.0-0.012); NRBC Pct Auto 0.0 /100WBC (0.0-0.2); Platelet Count 229 X10*3/uL (160-400); Red Blood Count 5.31 X10*6/uL (4.60-5.80); White Blood Count 7.1 X10*3/uL (4.8-10.8)
[2025-05-30 02:50] LABS: Alanine Aminotransferase 83 U/L (0-40); Albumin Level 4.6 g/dL (3.5-5.0); Alkaline Phosphatase 117 U/L (39-117); Anion Gap 14 (12-20); Aspartate Amino Transferase 74 U/L (5-37); Blood Urea Nitrogen 11 mg/dL (9-16); Calcium 9.0 mg/dL (8.4-10.2); Carbon Dioxide 21 mmol/L (22-29); Chloride 105 mmol/L (96-108); Creatinine Clr Calc Pharmacy 190.9; Estimated Glomerular Filt Rate > 60; Potassium 3.9 mmol/L (3.3-5.1); Sodium 136 mmol/L (135-145); Total Protein 7.5 g/dL (6.5-8.0)
[2025-05-30 07:36] VITALS: BP 127/84; PULSE 67; RESP 18; TEMP 36.7; O2SAT 98
--- NOTE | 2025-05-30 07:37 | PC.NURSE ---
Pt comes in from home for ?ETOH withdrawal symptoms. Per pt- was on a cruise for a week, returned on May 28, feels as though he overdid it with drinking. Last drink 4 days ago- denies daily ETOH use/drug use. Hx of ETOH withdrawal years ago. Pt a/ox3, speaking in full sentences, respirations even and unlabored, no increased wob/sob noted, maintaining O2 sat >92% on RA, denies SOB/CP, HR 60s. Pt endorsing nausea/dry heaves. No tremors/ah/vh. Vitals updated in worklist, CIWA 3. Call cooper within reach, all needs met at this time.
--- NOTE | 2025-05-30 07:53 | ED_ITS ---
HPI - General Adult General Chief complaint: General Medical Stated complaint: ETOH w/d last drink 05/27/25 Time Seen by Provider: 05/30/25 07:53 Source: patient and EMS Mode of arrival: EMS Limitations: no limitations History of Present Illness ED Provider: Elena Jackson PA-C HPI narrative: Patient is a 29 year old assigned male at with a history of binge drinking disorder presenting to the emergency department today with concerns for alcohol withdrawal. Patient states that he was on a cruise that was 7 days long and he had 7 drinks per day but he has been home for 3 days. Patient states that he looked it up online and got concerned he would be going into DTs. Patient denies any dizziness, lightheadedness, abdominal pain, nausea, vomiting, fever, chills, blurry vision, double vision, loss of vision, chest pain, difficulty breathing, shortness of breath, back pain, night sweats, pain with urination, increased urinary frequency, increased urinary urgency, blood in his urine or stool, syncope or a near syncopal episode, recent trauma or falls, bowel incontinence, bladder incontinence, or any other complaints at this time. Relieving factors: none Exacerbating factors: none Associated symptoms: denies other symptoms Treatments prior to arrival: none Related Data Previous Rx's ?Medication ?Instructions ?Recorded amoxicillin 500 mg capsule 500 mg PO Q8H #15 caps 03/23 01/15 Allergies Allergy/AdvReac Type Severity Reaction Status Date / Time No Known Allergies Allergy Verified 05/30/25 01:42 Review of Systems 2 Constitutional: Constitutional: Reports no additional constitutional complaints, Denies chills, Denies fever(s) and Denies night sweats Eyes: Eyes: Reports no additional eye complaints, Denies blurry vision, Denies change in vision, Denies diplopia, Denies eye discharge, Denies loss of vision and Denies eye pain ENT: Denies dizziness Cardiovascular: Cardiovascular: Reports no additional cardiovascular complaints, Denies chest pain, Denies lightheadedness, Denies Loss of Consciousness and Denies dyspnea Respiratory: Respiratory: Reports no additional respiratory complaints and Denies dyspnea Gastrointestinal: Gastrointestinal: Reports no additional gastrointestinal complaints, Denies abdominal pain, Denies melena, Denies hematochezia, Denies change in bowel habits and Denies change in stool character Genitourinary: Genitourinary: Reports no additional male genitourinary complaints, Denies hematuria, Denies oliguria, Denies difficulty urinating, Denies dysuria, Denies urinary frequency, Denies urinary hesitancy, Denies urinary incontinence and Denies urinary urgency Musculoskeletal: Musculoskeletal: Reports no additional musculoskeletal complaints, Denies numbness and Denies tingling Neurologic: Denies dizziness, Denies loss of vision, Denies numbness and Denies tingling Psychiatric: Psychiatric: Reports no additional psychiatric complaints Endocrine: Endocrine: Reports no additional endocrine complaints Hematologic/Lymphatic: Hematologic/Lymphatic: Reports no additional hematologic/lymphatic complaints Allergic/Immunologic: Allergic/Immunologic: Reports no additional allergic/immunologic complaints PMFSH Past Medical History Attestation statement: The following information was validated with the patient. Source: old records reviewed and nursing notes reviewed Medical History Alcohol abuse Surgical History No pertinent past surgical history Social History Social History Household Members: Family Housing: House Do you presently have visiting nurse or other home services: No Alcohol intake: current Alcohol intake frequency: holidays/special occasions only Alcohol type: beer Patient Tobacco Use Status: Never used Tobacco Smoked in Last 30 Days: No Use of substances other than those prescribed or required for medical reasons: No Advance Directives: Yes Advance Directives Information Provided: Yes Advance Directives on File: No Do you have a plan to hurt others: No Plan service: Yes Current occupational status: employed Physical Exam ED Vital Signs: Vital Signs - 24 hr 05/30/25 01:41 05/30/25 07:36 05/30/25 10:31 Temperature 97 F 98.0 F 98.0 F Pulse Rate 75 67 67 Respiratory Rate 18 18 18 Blood Pressure 144/84 H 127/84 127/84 Pulse Oximetry 97 98 98 Oxygen Delivery Method Room Air Room Air Room Air BMI result Body Mass Index 41.6 Const General: cooperative, no acute distress, alert and awake Nutritional Appearance: well nourished Orientation/consciousness: patient oriented x3 HENMT Head: Yes normal to inspection and Yes atraumatic Ears: hearing grossly normal bilaterally and external ears normal General nose exam: Normal external nose present, no nasal discharge noted and no epistaxis Face and sinus: Yes normal facial exam, No abrasion and No laceration Mouth: Normal oral and palatal mucosa present, no drooling and no muffled voice Eyes General: appearance normal, both eyes and all related structures Periorbital: periorbital findings normal Eyelids: Yes eyelids normal Conjunctivae: conjunctivae normal Pupils: Equal, round and reactive pupils present EOM: EOMs intact bilaterally Neck Neck: Yes normal visual inspection, Yes full ROM and Yes no lymphadenopathy Resp Effort & Inspection: normal respiratory effort and able to speak in complete sentences Neuro General: patient oriented x3, moves all extremities and CN's II-XI intact bilaterally Cranial nerves: Yes Equal, round and reactive pupils present Cognition (Neuro): normal cognition Extrem General: Yes normal to inspection, Yes full ROM and Yes capillary refill normal Psych Appearance: grossly normal Mental Status: mental status grossly normal Affect: normal affect Attitude: cooperative Thought process: Normal thought process present Thought content: Normal thought content present Insight: Good insight present (Psych) Medications Administered Discontinued Medications Generic Name Dose Route Start Last Admin Trade Name Freq PRN Reason Stop Dose Admin Sodium Chloride 1,000 mls @ 999 mls/hr 05/30/25 08:15 05/30/25 10:23 Ns IV 05/30/25 09:15 Infused .Q1H1M VIOLET Infusion Lorazepam 2 mg 05/30/25 08:11 05/30/25 08:42 Lorazepam 1 Mg Tablet PO 05/30/25 08:12 2 mg ONCE ONE Administration Medical Decision Making Medical Decision Making [facility] Narrative: Patient is a 29 year old assigned male at with a history of binge drinking disorder presenting to the emergency department today with concerns for alcohol withdrawal. Patient's physical exam was unremarkable. Patient's blood work was unremarkable. I explained my physical exam findings as well as all test results to the patient. I answered all questions asked by the patient. Patient received IV fluids and ativan which, upon re-evaluation, he stated it helped his symptoms significantly. Patient's clinical presentation is not consistent with alcohol withdrawal requiring hospitalization. I stressed the importance of the patient taking his medication as directed (either prescribed or as the over the counter packaging recommends). I stressed the importance of the patient following up with his primary care provider. I stressed the importance of the patient returning to the emergency department immediately if his symptoms were to worsen or if he were to develop any dizziness, shortness of breath, difficulty breathing, chest pain, blurry vision, loss of vision, nausea, vomiting, abdominal pain, fever, chills, back pain, or any other complaints. Patient verbalized agreement and understanding with this treatment plan and discharge. Differential Diagnosis Differential Diagnoses: The differential diagnosis associated with the presentation includes Alcohol use Binge drinking disorder Alcohol abuse Admission/Observation Consideration of admission/observation: Escalation of care including admission/observation considered Patient would have been admitted to the hospital had his work up had any findings where hospital admission was appropriate and his clinical presentation warranted hospital admission. Lab Data [facility] Lab Attestation statement: I reviewed the patient's lab results. My interpretation of these results are in the [facility] Rationale portion of this note. 05/30/25 01:53 05/30/25 01:53 Labs: Lab Results 05/30/25 Range/Units 01:53 WBC 7.1 (4.8-10.8) X10*3/uL RBC 5.31 (4.60-5.80) X10*6/uL Hgb 15.4 (14.0-18.0) g/dl Hct 44.1 (42.0-52.0) % MCV 83.1 (80.0-98.0) fL MCH 29.0 (27.0-33.0) pg MCHC 34.9 (31.0-36.0) g/dl RDW 13.2 (11.0-16.0) % Plt Count 229 (160-400) X10*3/uL MPV 10.1 (9.4-12.4) fL Immature Gran % (Auto) 0.7 H (0.0-0.4) % Neut % (Auto) 68.0 (45-73) % Lymph % (Auto) 22.6 (20-40) % [place] % (Auto) 6.9 (2-11) % Eos % (Auto) 1.4 (0-4) % Baso % (Auto) 0.4 (0-2) % Lymph # (Auto) 1.6 (1.2-4.9) X10*3/uL [place] # (Auto) 0.5 (0.1-1.2) X10*3/uL Eos # (Auto) 0.1 (0.0-0.4) X10*3/uL Baso # (Auto) 0.0 (0.0-0.2) X10*3/uL Abs Immat Gran (auto) 0.05 H (0.00-0.03) X10*3/uL Absolute Neuts (auto) 4.8 (2.0-8.3) x10*3/uL Absolute Nucleated RBC 0.000 (0.0-0.012) X10*3/uL Nucleated RBC % (auto) 0.0 (0.0-0.2) /100WBC Sodium 136 (135-145) mmol/L Potassium 3.9 (3.3-5.1) mmol/L Chloride 105 (96-108) mmol/L Carbon Dioxide 21 L (22-29) mmol/L Anion Gap 14 (12-20) BUN 11 (9-16) mg/dL Creatinine 0.67 (0.5-1.4) mg/dL Estim Creat Clear Calc 190.9 Estimated GFR > 60 Random Glucose 89 (60-115) mg/dL Calcium 9.0 (8.4-10.2) mg/dL Total Bilirubin 1.0 (0.0-1.0) mg/dL Direct Bilirubin 0.4 (0.0-0.5) mg/dL AST 74 H (5-37) U/L ALT 83 H (0-40) U/L Alkaline Phosphatase 117 (39-117) U/L Total Protein 7.5 (6.5-8.0) g/dL Albumin 4.6 (3.5-5.0) g/dL Lipase 25 (8-78) U/L Ethyl Alcohol < 10 mg/dL Independent Historian Clinical information obtained from an independent historian. History obtained from or confirmed by: EMS (EMS provided additional history and confirmed the history provided by the patient. ) Discharge Plan Discharge Clinical Impression: Alcohol use Patient Disposition: Home, Self-Care Instructions: Alcohol Intoxication (DC), Abuse of Alcohol (DC), Alcohol Withdrawal (DC) Additional Instructions: You were seen in the Emergency Department today for treatment of alcohol use disorder.? If you would like to cut down or stop your alcohol use please consider calling our outpatient Addiction Treatment office:? [facility] (M-F [id number]) [address] [place] [address] ? You have also been given a list of treatment providers in the area that can assist as well. Follow up with a primary care provider. Return to the emergency department immediately if your symptoms worsen or if you develop any numbness, tingling, dizziness, shortness of breath, difficulty breathing, chest pain, blurry vision, loss of vision, nausea, vomiting, abdominal pain, fever, chills, back pain, or any other complaints. L If you do not have a primary care provider - call any of the below numbers to establish and follow up with a primary care provider. [facility] ([place]) [phone] [place] [address], [id number] [facility] ([address]) [phone] [place] [address], [address] [facility], [address] [facility] ([address]) [phone] [place] [address], [address] [facility], [address] [facility] ([place]) [phone] [place] [address] [address] [facility], [address] [facility] Family Medicine [phone] [place] [address], [id number] Please see the information below about our Patient Portal. If you are not yet enrolled in the [facility] Patient Portal, you will receive an enrollment email invitation following your visit to any [facility] setting. You may also self-enroll in the Patient Portal by visiting our website: [email or web address] The following information is required to access the Patient Portal: - Your [facility] Medical Record Number - Your personal home email address (must match what is in your electronic medical record, Registration staff can assist with this) - Name - Date of Capabilities of the Patient Portal: - Message some providers - View upcoming appointments - Access your health summary, medical history, and visit history - View current conditions and allergies - View procedure and lab results - View your medications, including guidelines, side effects, and precautions - Complete pre-appointment questionnaires requested by your provider - Ready summary reports of your office visits and procedures To access the Patient Portal Mobile [employer], follow these directions: - Search [facility] in the [employer] Store or [employer] Store - Download the Sindy - Search for [facility] - Enter your login/password Prescriptions: No Action amoxicillin 500 mg Capsule 500 mg PO Q8H Qty: 15 0RF Stand Alone Forms: Work/School Release Interventions: ED Discharge Assessment Last Done: 05/30/25 10:31 Discharge Date/Time: 05/30/25 10:32 Print Language: Mauritanian
[2025-05-30 08:26] LABS: Lipase 25 U/L (8-78)
[2025-05-30 10:31] VITALS: BP 127/84; PULSE 67; RESP 18; TEMP 36.7; O2SAT 98
== END 2025-05-30 10:32 | disposition home or self-care (01) ==
PROVIDERS: Physician Assistant Medical; Emergency Provider Emergency Medicine Emergency Medical Services
DX: F10.130 Alcohol abuse with withdrawal, uncomplicated (principal); Y90.0 Blood alcohol level of less than 20 mg/100 ml; Z79.899 Other long term (current) drug therapy; R06.02 Shortness of breath
CPT/HCPCS: 36415; 80048; 80076; 80307; 83690; 85025; 96360; 96361; 99284

== ENCOUNTER 2025-10-18 19:06 | Inpatient (IN) | payer OTHER, SELFPAY ==
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
--- OUTSIDE RECORDS SUMMARY | 2025-10-17 23:59 | XMS_ITS | Continuity of Care Document ---
Author Organization [facility] Surendra hazel Address [address] [place] [address] [address] [place] [address]- Care Team Providers Care Reinforced Concrete Inspector Name Role Phone Kate MCMILLAN, Bhavin Mendes Primary Care Physicia n [id number] Date(s): 10/10/25 - 10/17/25 [facility] [address] [place] [id number] Attending Physician: Dk MCMILLAN, Korey Rodriguez Referring Physician: Not on Staff, Referring MD Encounter Type: Office Visit Allergies, Adverse Reactions, Alerts No Known Allergies Functional Status Functional Status Assessment Assessment Assessment Component Result Effecti Disability status [CUBS] I'm Thriving - no identified disability 10/10/25 Do you have serious difficulty walking or climbing stairs Unknown 10/10/25 Because of a physica l, mental, or emotional condition, do you have difficulty doing errands alone such as visiting a physician's office or shopping Unknown 10/10/25 Do you have difficul ty dressing or bathing Unknown 10/10/25 Do you need any katina tional assistance or accommodations during your visit Unknown 10/10/25 Difficulty Reading O r Writing Unknown 10/10/25 Are you blind, or do you have serious difficulty seeing, even when wearing glasses Unknown 10/10/25 Difficulty communica ting in usual language Unknown 10/10/25 Are you deaf, or do you have serious difficulty hearing Unknown 10/10/25 Because of a physica l, mental, or emotional condition, do you have serious difficulty concentrating, remembering, or making decisions Unknown 10/10/25 Medications escitalopram 10 mg oral tablet 1 tablet = 10 mg, By Mouth, Daily, # 30 tablet, 0 Refills, Maintenance, 12/25/23 10:38:00 AM EST, Tablet, Partial fill upon patient request if the prescription is for a schedule II opioid drug. Start Date: 12/25/23 Status: Ordered Medication Dispense Status: Completed Quantity: 30.0 Unit: tablet Total Allowed Fills: 1 Fills Dispensed: 0 folic acid 1 mg oral tablet 1 mg, By Mouth, Daily, # 30 tablet, Refills 0, Tot. Refills 0, Maintenance, 12/26/23 10:53:00 AM EST,Route to Pharmacy Electronically, [facility], Partial fill upon patient request if the prescription is for a schedule II opioid drug., 165, cm, 12/26/23 7:11:00 EST, Height, 100, kg, 12/26/23 3:40:00 EST, Dry Weight Start Date: 12/26/23 Stop Date: 01/25/24 Status: Ordered Medication Dispense Status: Completed Quantity: 30.0 Unit: tablet Total Allowed Fills: 1 Fills Dispensed: 0 traZODone 50 mg oral tablet 50 mg, 1, tablet, By Mouth, Daily at bedtime, # 30 tablet, Refills 0, Maintenance, 12/25/23 10:38:00 AM EST, Partial fill upon patient request if the prescription is for a schedule II opioid drug. Start Date: 12/25/23 Status: Ordered Medication Dispense Status: Completed Quantity: 30.0 Unit: tablet Total Allowed Fills: 1 Fills Dispensed: 0 Problem List Condition Confirmation Course Effective Dates Status Health St atus Informant Obese class II Confirmed Active Vital Signs Most recent to oldest [Reference Range]: 1 Height 165 cm (10/10/25 4:26 PM) Weight 100 kg (10/10/25 4:26 PM) Oxygen Saturation [94-100 %] 99 % (10/10/25 4:26 PM) Pulse Rate [55-90 bpm] 72 bpm (10/10/25 4:26 PM) Body Mass Index [18.5-24.99 kg/m2] 36.73 kg/m2 *H* (10/10/25 4:26 PM) Blood Pressure [90-138/55-84 mm Hg] 126/ 78mm Hg (10/10/25 4:26 PM) Blood pressure sites Arm, left (10/10/25 4:26 PM) Social History Social History Type Response Smoking Status Never smoker entered on: 02/12/16 Sex Sex Representation Male (finding) Patient Care team information Care Team Personnel Name: Kate MCMILLAN, Bhavin Mendes Position: [facility] Outreach Member Role: PCP Address: [address] [place] [id number] Telecom: Care Team Related Persons Name: NABIL VICENTE Name: JE LANG Insurance Providers Guarantor name: JESSICA Health Plan Information #: 1 Payer: [facility] Payer Identifier: JESSICA Member Number: [id number] Group Number: JESSICA Subscriber Identifier: [id number] Relationship to Subscriber: self Coverage Type: JESSICA Coverage Verification Date: JESSICA Telecom: JESSICA Address:
--- NOTE | 2025-10-18 | ECG_ITS ---
Test Reason : ETOH Blood Pressure : */* mmHG Vent. Rate : 83 BPM Atrial Rate : 83 BPM P-R Int : 166 ms QRS Dur : 88 ms QT Int : 380 ms P-R-T Axes : 50 18 4 degrees QTcB Int : 446 ms Normal sinus rhythm Cannot rule out Inferior infarct , age undetermined Abnormal ECG When compared with ECG of 25-Mar-2025 03:40, T wave inversion now evident in Anterior leads Referred By: Marry Marie Electronically Signed By: Krystian Childs
--- NOTE | ~2025-10-18 | XR_ITS ---
CLINICAL HISTORY: CP Chest radiographs, 2 views Comparison: CR - XR CHEST 2V - 03/25/25 04:04 EDT Findings: The cardiomediastinal silhouette is not enlarged. Pulmonary vascularity is unremarkable. No focal consolidation or effusion. No pneumothorax. IMPRESSION: No acute cardiopulmonary findings. This document has been electronically signed by: Artis Bhat DO on 10/19/2025 10:53:38
[2025-10-18 19:10] VITALS: BP 124/73; BP 131/93; PULSE 87; PULSE 94; RESP 18; O2SAT 95; O2SAT 97; BMI 29.9
[2025-10-18 19:51] LABS: Appearance Urine Clear; Glucose Urine UA Negative (Negative); PH 7.5 (5.0-9.0); Specific Gravity - Urine <= 1.005 (1.005-1.025)
--- OUTSIDE RECORDS SUMMARY | 2025-10-18 19:51 | XMS_ITS | Encounter Summary ---
Author Organization [facility] Address [address] [place] [address] [place] [phone] Phone Care Team Providers Care Registry Nurse Name Role Phone Pcp, Unknown Primary Care Provider Bhavin Hernandez MD Primary Care Provider Encounter Details Date Type Department Care Team (Late st Contact Info) Description 07/06/2024 Procedure Pass [facility], [address] [address] Social History Tobacco Use Types Packs/Day Years Used Date Smoking Tobacco: Never Assessed Education Answer Date Recorded Are you interested in more education? Not on janeth e 02/08/2024 Are you concerned about learning? Not on file 02/08/2024 No 02/08/2024 No 02/08/2024 Digital Access Answer Date Recorded No 02/08/2024 No 02/08/2024 Reliable internet access at home? Not on file 02/08/2024 Device with a working camera? Not on file Sex and Gender Information Value Date Recorded Sex Assigned at Male 08/11/2024 9:04 AM EDT Legal Sex Male 4:56 PM EDT Gender Identity Male 08/11/2024 9:04 AM EDT Sexual Orientation Straight 08/11/2024 9: 04 AM EDT documented as of this encounter Plan of Treatment Not on file documented as of this encounter Visit Diagnoses Not on filedocumented in this encounter Care Teams Registry Nurse Relationship Specialty Start Date End Date Pcp, Unknown PCP - General 02/19/24 08/10/24 Bhavin Parsons MD [address] [place], [place] [address] [address] PCP - General Internal Medicine 08/11/24 documented as of this encounter Additional Source Comments The information contained in this document represents components of the legal health record. It is not the complete legal health record.[facility]
--- OUTSIDE RECORDS SUMMARY | 2025-10-18 19:51 | XMS_ITS | Encounter Summary ---
Author Organization [facility] Address [address] [facility] [address] [place] [address] Phone Care Team Providers Care Bag Cutter Name Role Phone Pcp, Unknown Primary Care Provider Bhavin Hernandez MD Primary Care Provider Reason for Referral * MRI/CAT Scan - Closed Specialty Diagnoses / Procedures Referred By Contac t Referred To Contact Radiology Diagnoses Left knee pain, unspecified chronicity Procedures MRI Knee (Left) CHG MRI LOWER EXTREM JT, W/O CONTRAST Bhavin Parsons MD [address] [place] [address] Phone: tel: fax: Referral ID Status Reason Start Date Expiration Date Visits Re quested Visits Authorized [id number] Closed 07/06/2024 09/03/2024 1 1 Encounter Details Date Type Department Care Team (Latest Contact Info) Description 07/06/2024 Transcribe Orders Virtual Department [address] [place] [address] Bhavin Parsons MD [address] [place] [address] Left knee pain, unspecified chronicity (Primary Dx) Social History Tobacco Use Types Packs/Day Years [...] on file documented as of this encounter Results * MRI KNEE WITHOUT CONTRAST (LEFT) (08/06/2024 1:21 PM EDT) Anatomical Region Laterality Modality Knee Left Magnetic Resonan ce 08/09/2024 10:0 6 AM EDT Impressions 08/09/2024 12:28 PM EDT 1. Abnormal morphology of the medial meniscus anterior root attachment with adjacent parameniscal cyst. Finding may reflect a focal tear or a small ganglion with normal take off of the transverse ligament. 2. Probable low-grade sprain of the anterior cruciate ligament. 3. Extensor mechanism tendinosis. 4. 5 mm T2 hyperintense focus in the anterolateral distal femur with apparent mild endosteal scalloping, possibly a fibro-osseous lesion or low-grade chondroid lesion such as an enchondroma. Recommend further evaluation with CT to confirm the presence of endosteal scalloping, alternatively interval follow-up in 3-6 months can be performed to ensure stability given endosteal scalloping. A clinically significant result was initiated on 08/09/2024 12:27 PM, Message ID [id number]. Narrative 08/09/2024 12:28 PM EDT MRI KNEE WITHOUT CONTRAST (LEFT) Referring clinician's provided indication for this examination in Epic: Outside Radiology Order; left knee pain TECHNIQUE: Multi-sequence, multi-planar MRI of the knee without intravenous contrast. COMPARISON: None FINDINGS: Medial Compartment: Abnormal morphology of the meniscus anterior root attachment in the region of the transverse ligament takeoff with adjacent 1.0 cm parameniscal cyst. No cartilage defect or subchondral edema. Lateral Compartment: No meniscal tear. No cartilage defect or subchondral edema. Patellofemoral Compartment: No cartilage defect or subchondral edema. Tendons: Extensor mechanism tendinosis. The popliteus tendon is intact. Ligaments: The anterior cruciate ligament is intact with diffuse intrasubstance signal abnormality. The posterior cruciate ligament is intact. Collateral ligaments are intact. Bones: 5 mm T2 hyperintense, T1 hypointense focus in the anterolateral distal femur with apparent mild endosteal scalloping. No surrounding marrow edema. Joint: No joint effusion, synovitis, or Nuñez's cyst. Procedure Note Zach Adamson MD - 08/09/2024 MRI KNEE WITHOUT CONTRAST (LEFT) Referring clinician's provided indication for this examination in Epic:Outside Radiology Order; left knee pain TECHNIQUE: Multi-sequence, multi-planar MRI of the knee withoutintravenous contrast. COMPARISON: None FINDINGS: Medial Compartment: Abnormal morphology of the meniscus anterior rootattachment in the region of the transverse ligament takeoff with adjacent1.0 cm parameniscal cyst. No cartilage defect or subchondral edema. Lateral Compartment: No meniscal tear. No cartilage defect or subchondraledema. Patellofemoral Compartment: No cartilage defect or subchondral edema. Tendons: Extensor mechanism tendinosis. The popliteus tendon is intact. Ligaments: The anterior cruciate ligament is intact with diffuseintrasubstance signal abnormality. The posterior cruciate ligament isintact. Collateral ligaments are intact. Bones: 5 mm T2 hyperintense, T1 hypointense focus in the anterolateraldistal femur with apparent mild endosteal scalloping. No surroundingmarrow edema. Joint: No joint effusion, synovitis, or Nuñez's cyst. IMPRESSION: 1. Abnormal morphology of the medial meniscus anterior root attachmentwith adjacent parameniscal cyst. Finding may reflect a focal tear or asmall ganglion with normal take off of the transverse ligament. 2. Probable low-grade sprain of the anterior cruciate ligament. 3. Extensor mechanism tendinosis. 4. 5 mm T2 hyperintense focus in the anterolateral distal femur withapparent mild endosteal scalloping, possibly a fibro-osseous lesion orlow-grade chondroid lesion such as an enchondroma. Recommend furtherevaluation with CT to confirm the presence of endosteal scalloping,alternatively interval follow-up in 3-6 months can be performed to ensurestability given endosteal scalloping. A clinically significant result was initiated on 08/09/2024 12:27 PM,Message ID [id number]. Bhavin Parsons MD IMG MR EXTREMITY Final Result documented in this encounter Visit Diagnoses Diagnosis Left knee pain, unspecified chronicity- Primary Left knee pain, unspecified chronicity documented in this encounter Care Teams Bag Cutter Relationship Specialty Start Date End Date Pcp, Unknown PCP - General 02/19/24 08/10/24 Bhavin Parsons MD [address] [place] [id number] PCP - General Internal Medicine 08/11/24 documented as of this encounter Additional Source Comments The information contained in this document represents components of the legal health record. It is not the complete legal health record.[facility]
--- OUTSIDE RECORDS SUMMARY | 2025-10-18 19:51 | XMS_ITS | Encounter Summary ---
Author Organization [facility] Address [address] [place] [address] Phone Care Team Providers Care Orthodontic Laboratory Technician Name Role Phone Bhavin Parsons MD Primary Care Provider Encounter Details Date Type Department Care Team (Late st Contact Info) Description 05/01/2025 Procedure Pass [facility], [facility] [address] [place] [address] Social History Tobacco Use Types Packs/Day Years [...] before we got money to buy more. Never True 04/04/2025 Within the past 6 months the food we bought just didn't last and we didn't have enough money to get more. Never True Residential Stability Answer Date Recor ded What is your housing situation today? I have shauna sing 04/04/2025 How many times have you move d in the past 12 months? Zero (I did not move) 04/04/2025 Paying for Meds Answer Date Recorded Do you have trouble paying for medicines? No 04/04/2025 Paying Utility Bills Answer Date Record ed Do you have trouble paying your heating or elect ricity bill? No 04/04/2025 Transportation Answer Date Recorded Has the lack of transportati on kept you from medical appointments or from getting medications? No 04/04/2025 Digital Access Answer Date Recorded No 04/04/2025 Yes 04/04/2025 Do you have reliable internet access at home? Ye s 04/04/2025 Do you have a device (e.g., phone, tablet, computer) with a working camera? Yes 04/04/2025 Intimate Partner Violence Answer Date R ecorded Are you denied basic needs s uch as food, clothing, or medical care? No 04/03/2025 In the past 12 months have y ou been in a relationship with a person who hurts, threatens, or tries to control you? No 04/03/2025 Are you denied basic needs s uch as food, clothing, or medical care? No 04/03/2025 In the past 12 months have y ou been in a relationship with a person who hurts, threatens, or tries to control you? No 04/03/2025 Sex and Gender Information Value Date Recorded Sex Assigned at Male 08/11/2024 9:04 AM EDT Legal Sex Male 4:56 PM EDT Gender Identity Male 08/11/2024 9:04 AM EDT Sexual Orientation Straight 08/11/2024 9: 04 AM EDT documented as of this encounter Plan of Treatment Not on file documented as of this encounter Visit Diagnoses Not on filedocumented in this encounter Care Teams Orthodontic Laboratory Technician Relationship Specialty Start Date End Date Bhavin Parsons MD [address] [place] [address] PCP - General Internal Medicine 08/11/24 documented as of this encounter Additional Source Comments The information contained in this document represents components of the legal health record. It is not the complete legal health record.[facility]
--- OUTSIDE RECORDS SUMMARY | 2025-10-18 19:51 | XMS_ITS | Clinical Summary ---
Author Organization [facility] Address [address] [place] [id number] Phone Care Team Providers Care Die Caster Name Role Phone Bhavin Parsons MD Primary Care Provider Allergies Active Allergy Reactions Criticality Noted Date Comments Gabapentin Hepatitis Medium 03/01/2024 Other Reaction(s): Liver enzymes abnormal, Liver enzymes outside reference range Medications pregabalin (LYRICA) 200 MG capsule Take 200 mg by mouth 2 (two) times a day. 05/04/2025 Active sildenafiL (VIAGRA) 100 mg tablet Take 100 mg by mouth as needed. 07/04/2025 Active albuterol 90 mcg/actuation inhaler Inhale 2 puffs into the lungs every 6 (six) hours as needed. 05/04/2025 Active acetaminophen (TYLENOL) 325 mg tablet Take 2 tablets (650 mg total) by mouth every 6 (six) hours. 30 tablet 08/17/2025 Active omeprazole (PRILOSEC) 20 MG capsule Take 1 capsule (20 mg total) by mouth daily. 30 capsule 08/17/2025 Active naproxen (NAPROSYN) 500 MG tablet Take 1 tablet (500 mg total) by mouth 2 (two) times a day with meals. 14 tablet 08/17/2025 Active nicotine (NICODERM CQ) 21 mg/[address] 1 patch onto the skin daily. Apply to a clean, dry, hairless site on the upper arm or hip. 30 patch 08/17/2025 Active Active Problems Problem Noted Date Diagnosed Date Alcohol withdrawal syndrome without complication 10/18/2025 Alcohol withdrawal 08/15/2025 Assessment & Plan (08/16/2025 3:30 PM EDT): Drinks vodka, vague about quantity, states his last drink was 2 days ago but his BAL was 294. Actively withdrawing at this level suggesting he drinks vast quantities. Also using kratom which he stopped taking 5 days ago as well. He has been treated with phenobarbital. He has had 1000 mg in total. This is approximate 11.2 mg/kg. We have room to give him more if necessary though nursing is watching his CIWA closely and he is scoring low. -Continue CIWA -Continue thiamine folate multivitamin -Added clonidine 0.1 mg twice daily with hold parameters especially since he has recently stopped taking kratom. He asked questions about this medication and I explained to him the reasoning behind using it. Assessment & Plan (08/15/2025 8:08 PM EDT): Drinks vodka, vague about quantity, states his last drink was 2 days ago but his BAL was 294. Actively withdrawing at this level suggesting he drinks vast quantities. Also using kratom which he stopped taking 5 days ago as well. -Dosed with phenobarb 10 mg/kg load -Rescue dose to 60 mg (4 mg/kg) given at 7:30 PM -Continue phenobarb protocol, may have an additional rescue dose later this evening overnight if needed -Continue CIWA -Continue thiamine folate multivitamin -Adding clonidine 0.1 mg twice daily with hold parameters especially since he has recently stopped taking kratom -Could consider adding Suboxone for the kratom component if symptoms persist tomorrow Alcohol dependence with uncomplicated intoxicati on 07/17/2025 Assessment & Plan (07/17/2025 11:22 AM EDT): Patient presented with alcohol intoxication. He was treated for alcohol withdrawal and was discharged to go to [facility] for [facility] but went home and started drinking again. Pt presented back to the ED. - Has received phenobarbital 20 mg/kg - Plan to check phenobarbital level, would not exceed 30 mg/kg - Has also required additional IV diazepam in the ED. - Awake, alert, VSS - IV fluid - Ondansetron PRN - Social work and case management consulted for plan to get him to [facility] detox Assessment & Plan (07/17/2025 6:37 AM EDT): Has received phenobarbital in the emergency department but then required additional IV diazepam. ED did not feel that [facility] detox would take him after receiving so many medications so requested admission to the medicine service. We will have social work see him in consultation. He is vague about how much alcohol he drinks. He states that he only has been drinking for the past 10 days. I doubt that that is the case. Nicotine dependence Overview (07/17/2025): E-cigarette Assessment & Plan (08/16/2025 3:30 PM EDT): Nicotine replacement therapy offered Assessment & Plan (08/15/2025 8:08 PM EDT): Nicotine replacement therapy offered Assessment & Plan (07/17/2025 11:22 AM EDT): He uses vape products. - nicotine replacement therapy. Assessment & Plan (07/17/2025 6:37 AM EDT): He uses vape products. Will provide nicotine replacement therapy. Alcohol dependence Alcoholic peripheral neuropathy Assessment & Plan (07/17/2025 11:22 AM EDT): Restart Lyrica. Assessment & Plan (07/17/2025 6:37 AM EDT): Will restart Lyrica. Depression with anxiety Assessment & Plan (08/16/2025 3:30 PM EDT): Needs outpatient follow-up with psychiatry for ongoing treatment of depression and anxiety. He is in a difficult situation where he has anxiety and pain as well that he is self-medicating. I would advocate that he consider being treated at the [facility] on [facility] where they could work on an acceptable pain and anxiety regimen for him chronically. For now I am going to try some Toradol which should help with his musculoskeletal pain, and we will add a very low-dose lorazepam monitoring closely with the phenobarbital for the anxiety. I told him it is unlikely that we would prescribe him anything controlled on discharge as it would require somebody at the [facility] to slate picker the prescription writing afterwards. Assessment & Plan (08/15/2025 8:08 PM EDT): Needs outpatient follow-up with psychiatry for ongoing treatment of depression and anxiety PTSD (post-traumatic stress disorder) Assessment & Plan (07/17/2025 11:22 AM EDT): Restart doxazosin Assessment & Plan (07/17/2025 6:37 AM EDT): Will restart doxazosin Encounters Date Type Department Care Team Description 10/17/2025 4:38 PM EST - 10/18/2025 2:25 AM EST Emergency [facility] [address] [place] [address] Doug Corral MD Ewall, Katharine E, MD Discharge Disposition: Left Against Medical Advice 08/16/2025 4:46 PM EDT - 08/16/2025 11:59 PM EDT Hospital Encounter [facility] [address] [place] [id number] Ashok Mckeon MD Discharge Disposition: Home or Self Care 08/16/2025 Transcribe Orders [facility] [address] [place] [id number] Ashok Mckeon MD Alcohol withdrawal syndrome with complication (Primary Dx) 08/15/2025 10:45 AM EDT - 08/17/2025 3:45 PM EDT Hospital Encounter [facility] [address] [place] [address] Ashok Mckeon MD Brewer, Allison V, MD Israeli, Diana A, DO Russo, Margaret A, MD Discharge Disposition: Home or Self Care 07/27/2025 2:14 PM EDT - 07/27/2025 11:59 PM EDT Hospital Encounter [facility] [address] [place] [address] Elvira Serrano MD Discharge Disposition: Home or Self Care 07/16/2025 4:18 AM EDT - 07/18/2025 3:10 PM EDT Hospital Encounter [facility] [address] [place] [address] Asohk Mckeon MD Perez, Alberto Juan Ignacio, MD Andrade, Olyn Amanda, MD Hampson, Brian S, DO Altman, Evan K, DO, MPH Ladonna Vick DO, Saige Fulton MD Discharge Disposition: Home or Self Care 05/01/2025 Procedure Pass [facility], [facility] [address] [place] [address] from Last 3 Months Immunizations Immunization Administration Dates Next Due INFLUENZA, SPLIT VIRUS, TRIVALENT PF 08/17/2025 Social History Tobacco Use Types Packs/Day Years Used Date Smoking Tobacco: Never Smokeless Tobacco: Never Tobacco Cessation:Counseling Given: Not Answered Education Answer Date Recorded Are you interested [...] have you moved in the past 12 thu ths? Unable to assess 10/17/2025 Paying for [...] Orientation Straight 08/11/2024 9: 04 AM EDT Last Filed Vital Signs Vital Sign Reading Time Taken Comments Blood Pressure 128/64 10/18/2025 1:50 AM EST Pulse 100 10/18/2025 1:50 AM EST Temperature 36.9 C (98.4 F) 10/17/2025 6:15 PM EST Respiratory Rate 20 10/18/2025 1:50 AM EST Oxygen Saturation 100% 10/18/2025 1:50 AM EST Inhaled Oxygen Concentration - - Weight 88.9 kg (196 lb) 08/16/2025 5:20 AM EDT Height 167.6 cm (5' 5.98 ) 08/16/2025 5:20 AM ED T Body Mass Index 31.65 08/16/2025 5:20 AM EDT Plan of Treatment Health Maintenance Due Date Last Done Comments DEPRESSION SCREENING 2008 HEPATITIS C SCREENING 2014 HIV ONE-TIME SCREENING (18-6 5 YEARS) 2014 COVID-19 VACCINE (2024-2 6 season) 2025 Adult Td,Tdap Booster 12/26/2026 12/26/2016 MENINGOCOCCAL VACCINES (ACWY) Aged Out 12/26/2016 No longer eligible based on patient's age to complete this topic SMOKING STATUS SCREENING (On ce After 26 Yrs) Completed 08/15/2025 INFLUENZA VACCINE Completed 08/17/2025 HEPATITIS A VACCINES Aged Out No long er eligible based on patient's age to complete this topic HIB VACCINES Aged Out No longer eligi ble based on patient's age to complete this topic MENINGOCOCCAL VACCINES (B) Aged Out N o longer eligible based on patient's age to complete this topic PNEUMOCOCCAL VACCINES (0-49 years) Aged Out No longer eligible based on patient's age to complete this topic Medical Devices Not on file Procedures Procedure Name Priority Date/Time Associated Diagnosis Comments CBC AND DIFFERENTIAL STAT 10/17/2025 6:37 PM EST ETHANOL, BLOOD STAT 10/17/2025 6:37 PM EST PHOSPHORUS STAT 10/17/2025 6:37 PM EST PT-INR STAT 10/17/2025 6:37 PM EST BASIC METABOLIC PANEL (BMP) STAT 10/17/2025 6:37 PM EST LFTS (HEPATIC PANEL) STAT 10/17/2025 6:37 PM EST MAGNESIUM STAT 10/17/2025 6:37 PM EST CBC AND DIFFERENTIAL STAT 10/17/2025 6:37 PM EST MAGNESIUM Routine 08/17/2025 6:14 AM EDT PHOSPHORUS Routine 08/17/2025 6:14 AM EDT BASIC METABOLIC PANEL (BMP) Routine 08/17/2025 6:14 AM EDT CBC Routine 08/17/2025 6:14 AM EDT TOXICOLOGY SCREEN, URINE Routine 08/16/2025 4:00 PM EDT Alcohol withdrawal syndrome with complication URINALYSIS WITH REFLEX TO URINE CULTURE Routine 08/16/2025 4:00 PM EDT Alcohol withdrawal syndrome with complication CBC Routine 08/16/2025 6:01 AM EDT PHOSPHORUS Routine 08/16/2025 6:01 AM EDT MAGNESIUM Routine 08/16/2025 6:01 AM EDT LFTS (HEPATIC PANEL) Routine 08/16/2025 6:01 AM EDT BASIC METABOLIC PANEL (BMP) Routine 08/16/2025 6:01 AM EDT ECG 12-LEAD STAT 08/15/2025 6:34 PM EDT ETHANOL, BLOOD STAT 08/15/2025 11:26 AM EDT LIPASE STAT 08/15/2025 11:26 AM EDT MAGNESIUM STAT 08/15/2025 11:26 AM EDT LFTS (HEPATIC PANEL) STAT 08/15/2025 11:26 AM EDT BASIC METABOLIC PANEL (BMP) STAT 08/15/2025 11:26 AM EDT CBC AND DIFFERENTIAL STAT 08/15/2025 11:26 AM EDT ECG 12-LEAD STAT 08/15/2025 11:05 AM EDT BI MAMMOGRAM DIAGNOSTIC WITH TOMOSYNTHESIS WITH CAD (BILATERAL) Routine 07/27/2025 2:31 PM EDT Mastodynia CBC Routine 07/18/2025 5:24 AM EDT PHOSPHORUS Routine 07/18/2025 5:24 AM EDT MAGNESIUM Routine 07/18/2025 5:24 AM EDT BASIC METABOLIC PANEL (BMP) Routine 07/18/2025 5:24 AM EDT from Last 3 Months Results * (ABNORMAL) Ethanol, Blood (10/17/2025 6:37 PM EST) Only the most recent of2 resultswithin the time period is included. Pathologist [facility] Ethanol 375(H) Negative; <11 mg/dL 10/17/2025 7:17 PM [facility] Blood (Blood) Venipuncture / Unknown 10/17/2025 6:37 PM EST 10/17/2025 6:40 PM EST us Doug Corral MD LAB BLOOD BKR ORDERABLES Final Result Performing Organization Address City/State/[facility] Co de Phone Number [address] [address] * CBC and Differential (10/17/2025 6:37 PM EST) [facility] WBC 9.60 4.00 - 11.00 K/uL 10/17/2025 6:42 PM [facility] RBC 5.39 4.50 - 5.90 M/uL 10/17/2025 6:42 PM [facility] Hemoglobin 15.4 13.5 - 17.5 g/dL 10/17/2025 6:42 PM [facility] Hematocrit 45.3 41.0 - 53.0 % 10/17/2025 6:42 PM [facility] MCV 84.0 80.0 - 100.0 fL 10/17/2025 6:42 PM [facility] MCH 28.6 27.0 - 31.0 pg 10/17/2025 6:42 PM [facility] MCHC 34.0 32.0 - 36.0 g/dL 10/17/2025 6:42 PM [facility] MPV 9.3 8.4 - 12.0 fL 10/17/2025 6:42 PM [facility] RDW-CV 13.4 11.5 - 14.5 % 10/17/2025 6:42 PM [facility] PLT 365 150 - 450 K/uL 10/17/2025 6:42 PM [facility] Neutrophils 64.6 % 10/17/2025 6:42 PM [facility] Lymphocytes 29.5 % 10/17/2025 6:42 PM [facility] Monocytes 4.2 % 10/17/2025 6:42 PM [facility] Eosinophils 0.1 % 10/17/2025 6:42 PM [facility] Basophils 0.7 % 10/17/2025 6:42 PM [facility] Imm Grans 0.9 % 10/17/2025 6:42 PM [facility] NRBC 0.0 <=0.0 /100 WBCs 10/17/2025 6:42 PM [facility] Absolute Neutrophils 6.20 1.92 - 7.60 K/uL 10/17/2025 6:42 PM [facility] Absolute Lymphocytes 2.83 0.72 - 4.10 K/uL 10/17/2025 6:42 PM [facility] Absolute Monocytes 0.40 0.16 - 1.10 K/uL 10/17/2025 6:42 PM [facility] Absolute Eosinophils 0.01 0.00 - 0.50 K/uL 10/17/2025 6:42 PM [facility] Absolute Basophils 0.07 0.00 - 0.15 K/uL 10/17/2025 6:42 PM [facility] Absolute Imm Grans 0.09 0.00 - 0.09 K/uL 10/17/2025 6:42 PM [facility] Absolute NRBC 0.00 <=0.00 K cells/uL 10/17/2025 6:42 PM [facility] Absolute Neutrophils 6.20 1.92 - 7.60 K/uL 10/17/2025 6:42 PM [facility] Comment:Automated cell count . Manual ANC may differ if performed. Diff Type Auto 10/17/2025 6:42 PM [facility] Blood (Blood) Venipuncture / Unknown 10/17/2025 6:37 PM EST 10/17/2025 6:39 PM EST us Doug Corral MD LAB BLOOD BKR ORDERABLES Final Result Performing Organization Address City/[facility]/ZIP Co de Phone Number [address] [address] * Hepatic Panel (LFTs) (10/17/2025 6:37 PM EST) Only the most recent of3 resultswithin the time period is included. AST 21 <40 U/L 10/17/2025 7:17 PM EST [facility] ALT 21 <50 U/L 10/17/2025 7:17 PM [facility] Alkaline Phosphatase 107 40 - 130 U/L 10/17/2025 7:17 PM [facility] Bilirubin, Total 0.2 0.0 - 1.2 mg/dL 10/17/2025 7:17 PM [facility] Bilirubin, Direct 0.1 0.0 - 0.3 mg/dL 10/17/2025 7:17 PM [facility] Total Protein 7.5 6.4 - 8.3 g/dL 10/17/2025 7:17 PM [facility] Albumin 4.5 3.5 - 5.2 g/dL 10/17/2025 7:17 PM [facility] Globulin 3.0 1.9 - 4.1 g/dL 10/17/2025 7:17 PM [facility] Blood (Blood) Venipuncture / Unknown 10/17/2025 6:37 PM EST 10/17/2025 6:40 PM EST us Doug Corral MD LAB BLOOD BKR ORDERABLES Final Result [address] [address] * (ABNORMAL) PT-INR (10/17/2025 6:37 PM EST) PT 13.6(H) 10.0 - 13.0 sec 10/17/2025 7:14 PM EST [facility] INR 1.1 0.9 - 1.1 10/17/2025 7:14 PM EST [facility] Comment:Therapeutic Range 2. 0 - 3.5 Blood (Blood) Venipuncture / Unknown 10/17/2025 6:37 PM EST 10/17/2025 6:40 PM EST us Doug Corral MD LAB BLOOD BKR ORDERABLES Final Result [address] [address] * Phosphorus (10/17/2025 6:37 PM EST) Only the most recent of4 resultswithin the time period is included. Phosphorus 3.3 2.5 - 4.5 mg/dL 10/17/2025 7:17 PM EST [facility] Blood (Blood) Venipuncture / Unknown 10/17/2025 6:37 PM EST 10/17/2025 6:40 PM EST us Doug Corral MD LAB BLOOD BKR ORDERABLES Final Result Performing Organization Address [facility] Co de Phone Number [address] [address] * Magnesium (10/17/2025 6:37 PM EST) Only the most recent of5 resultswithin the time period is included. Magnesium 2.0 1.7 - 2.6 mg/dL 10/17/2025 7:17 PM EST [facility] Blood (Blood) Venipuncture / Unknown 10/17/2025 6:37 PM EST 10/17/2025 6:40 PM EST us Doug Corral MD LAB BLOOD BKR ORDERABLES Final Result Performing Organization Address City/[facility]/ZIP Co de Phone Number [address] [address] * (ABNORMAL) Basic Metabolic Panel (BMP) (10/17/2025 6:37 PM EST) Only the most recent of5 resultswithin the time period is included. Pathologist [facility] Sodium 144 136 - 145 mmol/L 10/17/2025 7:17 PM [facility] Potassium 3.9 3.4 - 5.1 mmol/L 10/17/2025 7:17 PM [facility] Chloride 103 98 - 107 mmol/L 10/17/2025 7:17 PM [facility] CO2 26 20 - 31 mmol/L 10/17/2025 7:17 PM [facility] Anion Gap 15 3 - 17 mmol/L 10/17/2025 7:17 PM [facility] BUN 8 6 - 23 mg/dL 10/17/2025 7:17 PM [facility] Creatinine 0.70 0.60 - 1.30 mg/dL 10/17/2025 7:17 PM [facility] eGFR 128 >59 mL/min/1.7 3m2 10/17/2025 7:17 PM [facility] Comment:Estimated glomerular filtration rate calculated using the CKD-EPI refit equation. Glucose 119(H) 70 - 99 mg/dL 10/17/2025 7:17 PM [facility] Calcium 8.5 8.5 - 10.5 mg/dL 10/17/2025 7:17 PM [facility] Blood (Blood) Venipuncture / Unknown 10/17/2025 6:37 PM EST 10/17/2025 6:40 PM EST us Doug Corral MD LAB BLOOD BKR ORDERABLES Final Result [facility] [address] [place] [address] * (ABNORMAL) CBC (08/17/2025 6:14 AM EDT) Only the most recent of3 resultswithin the time period is included. Pathologist [facility] WBC 8.23 4.00 - 11.00 K/uL [facility] RBC 4.66 4.50 - 5.90 M/uL [facility] HGB 13.4(L) 13.5 - 17.5 g/dL [facility] HCT 38.9(L) 41.0 - 53.0 % [facility] PLT 259 150 - 450 K/uL [facility] MCV 83.5 80.0 - 100.0 fL [facility] MCH 28.8 27.0 - 31.0 pg [facility] MCHC 34.4 32.0 - 36.0 g/dL [facility] RDW 12.4 11.5 - 14.5 % [facility] MPV 10.6 8.4 - 12.0 fL [facility] NRBC 0.00 0.00 /100 WBCs [facility] ABSOLUTE NRBC 0.00 0.00 K/uL [facility] Blood 08/17/2025 6:14 AM EDT 08/17/2025 6:34 AM EDT us Alon Frazier MD LAB BLOOD BKR ORDERABLES Fi nal Result Performing Organization Address City/[facility] Co de Phone Number [address] [address] * Urinalysis w/reflex Urine Culture (08/16/2025 4:00 PM EDT) COLOR Yellow Yellow [facility] CLARITY CLOUDY [facility] GLUCOSE Negative Negative [facility] BILI Negative Negative [facility] KETONES Negative Negative [facility] SPECIFIC GRAVITY 1.015 1.005 - 1.030 [facility] BLOOD Negative Negative [facility] PH 7.5 5.0 - 8.0 [facility] Protein-UA Negative Negative [facility] NITRITE Negative Negative [facility] Leukocyte esterase, ur Negative Negative [facility] Urine 08/16/2025 4:00 PM EDT 08/16/2025 4:49 PM EDT us Ashok Mckeon MD LAB URINE ORDERABLES Fin al Result Performing Organization Address City/[facility]/ZIP Co de Phone Number [address] [address] * (ABNORMAL) Toxicology screen, urine (08/16/2025 4:00 PM EDT) URINE CANNABINOIDS Positive(A) NONE DETECTED [facility] Comment:Cutoff: 50 ng/mL URINE COCAINE METAB NONE DETECTED NONE DETECTED [facility] Comment:Cutoff: 300 ng/mL URINE AMPHETAMINES NONE DETECTED NONE DETECTED [facility] Comment:Cutoff: 1000 ng/mL URINE METHADONE NONE DETECTED NONE DETECTED [facility] Comment:Cutoff: 300 ng/mL URINE OPIATES NONE DETECTED NONE DETECTED [facility] Comment:Cutoff: 300 ng/mL URINE PHENCYCLIDINE NONE DETECTED NONE DETECTED [facility] Comment:Cutoff: 25 ng/mL URINE OXYCODONE NONE DETECTED NONE DETECTED [facility] Comment:Cutoff: 300 ng/mL URINE BARBITURATES Positive(A) NONE DETECTED [facility] Comment:Cutoff: 200 ng/mL URINE BENZODIAZEPINE NONE DETECTED NONE DETECTED [facility] Comment:Cutoff: 200 ng/mL URINE BUPRENORPHINE NONE DETECTED NONE DETECTED [facility] Comment:Cutoff: 5 ng/mL Fentanyl, urine NONE DETECTED NONE DETECTED [facility] Comment: Cutoff: 5 ng/mL INTERPRETATION FOR TOXICOLOGY PANEL: These results are unconfirmed and should be used for Medical Treatment purposes only. Urine 08/16/2025 4:00 PM EDT 08/16/2025 4:49 PM EDT us Ashok Mckeon MD LAB URINE ORDERABLES Fin al Result [address] [address] * ECG 12-LEAD (08/15/2025 6:34 PM EDT) Only the most recent of2 resultswithin the time period is included. Ventricular Rate EKG/MIN 106 BPM [facility] Atrial Rate 106 BPM [facility] NM Interval 150 ms [facility] QRS Duration 80 ms [facility] QT Interval 332 ms [facility] QTC Interval 441 ms [facility] P [place] 54 degrees [facility] R Wave [place] 21 degrees [facility] T Wave [place] -17 degrees [facility] 08/15/2025 6:34 PM EDT 08/16/2025 2:44 PM EDT Narrative [facility] - 08/16/2025 2:44 PM EDT Sinus tachycardia T wave abnormality, consider inferior ischemia T wave abnormality, consider anterior ischemia Abnormal ECG When compared with ECG of 15-Aug-2025 11:05, Previous ECG has undetermined rhythm, needs review Nonspecific T wave abnormality now evident in Lateral leads QT has shortened Confirmed by Aldo Braswell ([id number]) on 08/16/2025 2:44:40 PM us Ashok Mckeon MD ECG ORDERABLES Final Re sult ALEXI_DELANO * (ABNORMAL) CBC and differential (08/15/2025 11:26 AM EDT) WBC 8.35 4.00 - 11.00 K/uL [facility] RBC 5.71 4.50 - 5.90 M/uL [facility] HGB 16.7 13.5 - 17.5 g/dL [facility] HCT 48.9 41.0 - 53.0 % [facility] PLT 376 150 - 450 K/uL [facility] MCV 85.6 80.0 - 100.0 fL [facility] MCH 29.2 27.0 - 31.0 pg [facility] MCHC 34.2 32.0 - 36.0 g/dL [facility] RDW 13.4 11.5 - 14.5 % [facility] MPV 9.9 8.4 - 12.0 fL [facility] NRBC 0.00 0.00 /100 WBCs [facility] ABSOLUTE NRBC 0.00 0.00 K/uL [facility] DIFF METHOD Auto [facility] NEUTS 61.2 48.0 - 76.0 % [facility] LYMPHS 26.6 18.0 - 41.0 % [facility] MONOS 10.3 4.0 - 11.0 % [facility] EOS 0.1 0.0 - 5.0 % [facility] BASOS 0.8 0.0 - 1.5 % [facility] Granulocytes, immature (%) 1.0(H) 0.0 - 0.9 % [facility] ABSOLUTE NEUTS 5.11 1.92 - 7.60 K/uL [facility] ABSOLUTE LYMPHS 2.22 0.72 - 4.10 K/uL [facility] ABSOLUTE MONOS 0.86 0.16 - 1.10 K/uL [facility] ABSOLUTE EOS 0.01 0.00 - 0.50 K/uL [facility] ABSOLUTE BASOS 0.07 0.00 - 0.15 K/uL [facility] Granulocytes, immature 0.08 0.00 - 0.09 K/uL [facility] Blood 08/15/2025 11:2 6 AM EDT 08/15/2025 11:40 AM EDT Ashok Mckeon MD LAB BLOOD BKR ORDERABLES Final Result Performing Organization Address [facility] Co de Phone Number [address] [address] * Lipase (08/15/2025 11:26 AM EDT) LIPASE 16 16 - 63 U/L [facility] Blood 08/15/2025 11:2 6 AM EDT 08/15/2025 11:40 AM EDT Ashok Mckeon MD LAB BLOOD BKR ORDERABLES Final Result Performing Organization Address [facility] Co de Phone Number [address] [address] * BI MAMMOGRAM DIAGNOSTIC WITH TOMOSYNTHESIS WITH CAD (BILATERAL) (07/27/2025 2:31 PM EDT) Anatomical Region Laterality Modality Breast Left, Breast Right, Breast Bilateral Bila teral Mammography 07/27/2025 2:40 PM EDT Impressions 07/27/2025 3:09 PM EDT No findings suspicious for malignancy. Clinical follow-up recommended. BI-RADS 1 NEGATIVE Results and recommendations were communicated to the patient at time of examination. Narrative 07/27/2025 3:09 PM EDT BI MAMMOGRAM DIAGNOSTIC WITH TOMOSYNTHESIS WITH CAD (BILATERAL) Additional patient information: COMPARISON: Comparison is made with relevant prior imaging. Breast composition: The breasts are almost entirely fatty. FINDINGS: Right Mammogram: No abnormal masses, suspicious calcifications, or other significant findings are identified mammographically in the right breast. Left Mammogram: No abnormal masses, suspicious calcifications, or other significant findings are identified mammographically in the left breast. Procedure Note Zac Sue MD - 07/27/2025 BI MAMMOGRAM DIAGNOSTIC WITH TOMOSYNTHESIS WITH CAD (BILATERAL) Additional patient information: COMPARISON: Comparison is made with relevant prior imaging. Breast composition: The breasts are almost entirely fatty. FINDINGS: Right Mammogram: No abnormal masses, suspicious calcifications, or other significantfindings are identified mammographically in the right breast. Left Mammogram: No abnormal masses, suspicious calcifications, or other significantfindings are identified mammographically in the left breast. IMPRESSION: No findings suspicious for malignancy. Clinical follow-up recommended. BI-RADS 1 NEGATIVE Results and recommendations were communicated to the patient at time ofexamination. Elvira Serrano MD IMG MG EXAMS Final Result from Last 3 Months Insurance [facility] [address] [address] SAFETY NET PARTIAL [facility] PARTIAL [facility] Member Subscriber Plan / Payer (Ef fective 2024-Present) Name:Ahmet Donnelly Relation to Subscriber:Self Name:Ahmet Donnelly Payer ID:[id number] (NAIC) Group ID:Not on file Type:Indemnity Address: [facility] [employer] [id number] NET PARTIAL [facility] PARTIAL [facility] Member Subscriber Plan / Payer (Ef fective 2024-Present) Name:Ahmet Donnelly Relation to Subscriber:Self Name:Ahmet Donnelly Payer ID:[id number] (NAIC) Group ID:Not on file Type:Indemnity Address: [facility] [employer] [id number] [place] [id number] [facility] NET PARTIAL [facility] SAFETY NET PARTIAL Advance Directives For more information, please contact: [phone] (9AM - 5PM [facility], Thursday-Thursday) Documents on File Type Date Recorded Patient Net Solutions Architect Expl anation Healthcare Proxy 08/18/2025 1:04 PM Healthcare Proxy 08/16/2025 11:38 AM healt hcare proxy * Full Code (Latest Code Status on File) Date Activated Date Inactivated Comments 08/15/2025 8:10 PM Question Answer Comments Code Status Confirmed With: Patient * Full Code Date Activated Date Inactivated Comments 07/17/2025 11:11 AM 08/15/2025 8:10 PM Question Answer Comments Code Status Confirmed With: Patient Healthcare Agents on File Name Relationship Healthcare Agent [facility] Communication Shakirakoko Darnell Mother .Primary Health Care Agent (Proxy form on file) Care Teams Die Caster Relationship Specialty Start Date End Date Bhavin Parsons MD [address] [place] [id number] PCP - General Internal Medicine 08/11/24 Additional Source Comments The information contained in this document represents components of the legal health record. It is not the complete legal health record.[facility]
[2025-10-18 20:00] LABS: Cannabinoid Screen Urine Not Detected (Not Detect)
--- NOTE | 2025-10-18 20:14 | PC.NURSE ---
pt mom called PD as pt was intoxicated and this has been more consistent lately. PD sectioned pt as mom would like him evaluated by care team. Mom reports to EMS consumption of 1/2 gallon of vodka and pint of Meir Balderas. pt unable to answer direct questions, not oriented to self place or situation. pt has tremors at baseline and hx of PTSD.
[2025-10-18 20:24] LABS: MANUAL DIFF FLAG NO
[2025-10-18 20:29] LABS: Hematocrit 41.3 % (42.0-52.0); Hemoglobin 14.5 g/dl (14.0-18.0); Imm Gran Abs Auto 0.07 X10*3/uL (0.00-0.03); Imm Gran Pct Auto 1.2 % (0.0-0.4); Lymphocytes Absolute Auto 1.5 X10*3/uL (1.2-4.9); Mean Corpuscular HGB Conc 35.1 g/dl (31.0-36.0); Mean Corpuscular Hemoglobin 28.8 pg (27.0-33.0); Mean Corpuscular Volume 82.1 fL (80.0-98.0); NRBC Abs Auto 0.000 X10*3/uL (0.0-0.012); NRBC Pct Auto 0.0 /100WBC (0.0-0.2); Platelet Count 355 X10*3/uL (160-400); Red Blood Count 5.03 X10*6/uL (4.60-5.80); White Blood Count 5.8 X10*3/uL (4.8-10.8)
[2025-10-18 20:40] LABS: Alanine Aminotransferase 29 U/L (0-40); Albumin Level 4.6 g/dL (3.5-5.0); Alkaline Phosphatase 103 U/L (39-117); Anion Gap 15 (12-20); Aspartate Amino Transferase 28 U/L (5-37); Blood Urea Nitrogen 6 mg/dL (9-16); Calcium 8.7 mg/dL (8.4-10.2); Carbon Dioxide 25 mmol/L (22-29); Chloride 108 mmol/L (96-108); Creatinine Clr Calc Pharmacy 173.0; Estimated Glomerular Filt Rate > 60; Potassium 3.6 mmol/L (3.3-5.1); Salicylate < 5.0 mg/dL (15-30); Sodium 144 mmol/L (135-145); Total Protein 7.3 g/dL (6.5-8.0)
--- NOTE | 2025-10-18 21:30 | PC.NURSE ---
late entry: pt attempting to get out of bed, mom at bedside, advised pt must stay in bed, attempted to help pt use the urinal again with no success. kayleen and this RN at bedside. Security called as pt was unwilling to get back in bed and became aggressive. attempting to get pt back into bed, this RN tech, mom and security attempting to talk pt back into bed for safety. pt ripped off all medical equipment. provider advised/ at bedside. security was able to get pt back into bed and 4 point velcro restraints applied, pt medicated per MAR.
[2025-10-18 22:01] VITALS: BP 106/55; PULSE 96; RESP 25; TEMP 36.6; O2SAT 92
--- NOTE | 2025-10-18 23:33 | PC.NURSE ---
pt awake, attempting to get out of bed. pt states he needs to urinate, pt helped with urinal and offered commode. pt unable to urinate at this time. 1:1 sitter at bedside, advised pt cannot get out of bed alone at this time.
[2025-10-19] VITALS (9 sets, daily range): BP systolic 112–150; BP diastolic 60–85; PULSE 72–106; RESP 16–24; TEMP 36.8–37.1; O2SAT 94–98; BMI 30.1
--- NOTE | 2025-10-19 | ECG_ITS ---
Test Reason : CP Blood Pressure : */* mmHG Vent. Rate : 83 BPM Atrial Rate : 83 BPM P-R Int : 158 ms QRS Dur : 88 ms QT Int : 380 ms P-R-T Axes : 36 27 32 degrees QTcB Int : 446 ms Normal sinus rhythm with sinus arrhythmia Normal ECG When compared with ECG of 18-Oct-2025 19:35, No significant change was found Referred By: Marry Marie Electronically Signed By: Krystian Childs
--- NOTE | 2025-10-19 00:37 | PC.NURSE ---
pt intoxicated, unable to properly asses CIWA at this time. pt unable to answer questions, tremors at baseline.
--- NOTE | 2025-10-19 02:26 | ED_ITS ---
HPI - General Adult General Chief complaint: ETOH/Substance Use Stated complaint: ETOH A&Ox 2/3 Time Seen by Provider: 10/18/25 20:11 Source: patient, family and EMS History of Present Illness ED Provider: Gwen Welsh PA-C HPI narrative: 30-year-old male with a history of PTSD, alcohol use disorder with prior alcohol withdrawal, presents with suicidal ideation. Per EMS, the patient's mother called for assistance to the home after the patient has been binge drinking for days. He typically consumes 0.5 gal of vodka and a pt of Meir Snow. The patient verbalized thoughts of self-harm to CHD in the community. History limited from the patient has he is clinically intoxicated. Related Data Previous Rx's ?Medication ?Instructions ?Recorded clonidine HCl 0.1 mg tablet 0.1 mg PO BID PRN alcohol 10/20/25 withdrawal #10 tabs folic acid 1 mg tablet 1 mg PO DAILY #30 tabs 10/20 magnesium oxide 400 mg (241.3 mg 800 mg (2 x 400 mg (2 41.3 mg 10/20/25 magnesium) tablet magnesium)) PO BID #40 tabs potassium chloride 10 mEq 10 meq PO DAILY #7 caps 09/24 07/17 capsule,extended release thiamine mononitrate (vit B1) 100 100 mg PO DAILY #30 tabs 10/20/25 mg tablet Allergies Allergy/AdvReac Type Severity Reaction Status Date / Time No Known Allergies Allergy Verified 10/18/25 19:28 Review of Systems 2 Review of Systems: Unable to obtain secondary to intoxication Yes all other systems are reviewed and are negative [facility] Past Medical History Attestation statement: The following information was validated with the patient. Medical History Alcohol abuse Surgical History No pertinent past surgical history Social History Social History (Updated 10/19/25 @ 10:25 by MELISA Mari) Household Members: None Housing: Apartment Do you presently have visiting nurse or other home services: No Alcohol intake: current Alcohol intake frequency: 3 or more drinks per day Alcohol type: hard liquor Patient Tobacco Use Status: Never used Tobacco Tobacco use type: Smokeless Tobacco e-Cigarette/Vaping Use: Currently Using Second Hand Smoke Exposure: No service: No Current occupational status: employed Physical Exam ED Vital Signs: Vital Signs - 24 hr 10/18/25 19:10 10/18/25 22:01 10/19/25 01:37 Temperature 97.8 F Pulse Rate 87 96 99 Respiratory Rate 18 25 H 16 Blood Pressure 124/73 106/55 L 143/85 H Pulse Oximetry 97 92 97 Oxygen Delivery Method Room Air Room Air Room Air 10/19/25 02:23 10/19/25 05:51 10/19/25 08:21 Temperature 98.7 F Pulse Rate 101 H 106 H 106 H Respiratory Rate 19 16 16 Blood Pressure 150/73 H 117/67 117/67 Pulse Oximetry 94 96 96 Oxygen Delivery Method Room Air Room Air Room Air BMI result Body Mass Index 29.9 Const Other: Initially somnolent, woken with verbal stimuli Orientation/consciousness: oriented to person HENMT Other: Alcohol halitosis Resp Effort & Inspection: normal respiratory effort Cardio Other: Normal peripheral perfusion Skin Other: Warm dry no rash Neuro General: oriented to person, no focal motor deficits and CN's II-XI intact bilaterally Psych Other: Became agitated and hostile Course Reevaluation(s) Reevaluation #1: Having to physically and chemically restrain. The patient's mother arrived, was at bedside, she triggered the patient, we have asked her to leave. The patient is now hostile belligerent and trying to get out of bed. For his safety and the safety of staff, we are having to both chemically and physically restrain the patient. Reevaluation #2: Time: 02:36 Date: 10/19/25 Provider: MELISA Goetz Patient in physician observation for psychiatric evaluation.? No acute events reported overnight. No current complaints. VS stable.? Patient is in bed search status/pending CARE team evaluation. Will continue to monitor. Time: 02:36 Reevaluation #3: Patient feels as if he is beginning to withdraw. He states when he binge drinks, he would draws more rapidly. He does state he has had seizure activity before, initiating the phenobarb protocol Time: 02:41 Additional Reevaluation(s): 7:34 AM 10/19/2025 (Dr. Trino Hart): Patient evaluated, reports anxiety and then he is sweaty, he is anxious but non sweaty on physical examination, denies SI, about to be evaluated by care team, overnight he felt like he is beginning to withdraw and he was started on phenobarb protocol, I spoke to the patient he states March 2025 at [facility] he did have alcohol withdrawal seizure, since he was started on phenobarb protocol, anticipating he will likely need to be admitted. 8:01 AM 10/19/2025 (Dr. Trino Hart): Patient cleared by care team however also spoke to the patient that based on the fact that he was started on phenobarb protocol he will need to be admitted patient declines admission though I did tell him the reason for admission is the phenobarb but some point we will metabolize and he is at risk for withdrawal seizures however patient does have the capacity to make a decision and his mother is going to pick him up. 9:10 AM 10/19/2025 (Dr. Trino Hart): When mom arrived to pick patient up they spoke and patient is agreeable for admission Medications Administered Discontinued Medications Generic Name Dose Route Start Last Admin Trade Name Freq PRN Reason Stop Dose Admin Acetaminophen 650 mg 10/19/25 09:33 10/19/25 22:21 Acetaminophen 325 Mg Tablet PO 650 mg Q6H PRN Administration Pain, Mild 1-3,fever,headache Diazepam 5 mg 10/19/25 03:39 10/19/25 03:50 Diazepam 10 Mg/2 Ml Cartridge IVPUSH 10/19/25 03:40 5 mg STAT STA Administration Diazepam 4 mg 10/19/25 07:38 10/19/25 08:00 Diazepam 2 Mg Tablet PO 10/19/25 07:39 4 mg ONCE ONE Administration Enoxaparin Sodium 40 mg 10/19/25 10:00 10/20/25 08:44 Enoxaparin Sodium 40 Mg/0.4 Ml Syringe SUBCUT 40 mg Q24H VIOLET Administration Famotidine 20 mg 10/19/25 09:35 10/20/25 08:43 Famotidine/Pf 20 Mg/2 Ml Vial IVPUSH 20 mg DAILY VIOLET Administration Folic Acid 1 mg 10/20/25 09:00 10/20/25 08:44 Folic Acid 1 Mg Tablet PO 1 mg DAILY VIOLET Administration Gabapentin 100 mg 10/19/25 12:23 10/19/25 12:56 Gabapentin 100 Mg Capsule PO 100 mg TID PRN Administration Anxiety Haloperidol Lactate 5 mg 10/18/25 21:10 10/18/25 21:21 Haloperidol Lactate 5 Mg/Ml Vial IM 10/18/25 21:11 5 mg STAT STA Administration Lactated Ringer's 1,000 mls @ 999 mls/hr 10/19/25 03:45 10/19/25 06:46 Lr IV 10/19/25 04:45 Infused .Q1H1M VIOLET Infusion Lactated Ringer's 1,000 mls @ 125 mls/hr 10/19/25 09:45 10/20/25 11:34 Lr IVCONT 125 mls/hr .Q8H VIOLET Infusion Magnesium Sulfate 2 gm in 50 mls @ 25 mls/hr 10/20/25 05:56 10/20/25 08:05 Magnesium Sulfate/H2o IV 10/20/25 07:55 Infused ONCE STA Infusion Magnesium Oxide 800 mg 10/20/25 09:00 10/20/25 08:43 Magnesium Oxide 400 Mg Tablet PO 800 mg DAILY VIOLET Administration Melatonin 6 mg 10/19/25 09:33 10/19/25 22:19 Melatonin 3 Mg Tablet PO 6 mg BEDTIME PRN Administration Insomnia Midazolam HCl 5 mg 10/18/25 21:10 10/18/25 21:21 Midazolam Hcl 5 Mg/Ml Vial IM 10/18/25 21:11 5 mg ONCE ONE Administration Ondansetron HCl 4 mg 10/19/25 09:33 10/19/25 12:09 Ondansetron Hcl 4 Mg/2 Ml Vial IVPUSH 4 mg Q8H PRN Administration Nausea and Vomiting Phenobarbital 45 mg 10/19/25 17:00 10/20/25 08:43 Phenobarbital 15 Mg Tablet PO 10/20/25 22:01 45 mg BID@1000,2200 VIOLET Administration Protocol Phenobarbital Sodium 332 mg 10/19/25 03:00 10/19/25 03:13 Phenobarbital Sodium 130 Mg/Ml Im Once IM 10/19/25 03:01 332 mg ONCE ONE Administration Protocol Phenobarbital Sodium 249 mg 10/19/25 06:00 10/19/25 08:00 Phenobarbital Sodium 130 Mg/Ml Vial Im Q3hx2 IM 10/19/25 09:01 249 mg Q3H VIOLET Administration Protocol Phenobarbital Sodium 130 mg 10/19/25 18:27 10/19/25 19:46 Phenobarbital Sodium 130 Mg/Ml Vial IM 10/19/25 18:28 130 mg ONCE ONE Administration Potassium Chloride 40 meq 10/20/25 08:09 10/20/25 08:44 Potassium Chloride Er 20 Meq Tab.Er.Prt PO 10/20/25 08:10 40 meq ONCE ONE Administration Sodium Chloride 3 ml 10/19/25 16:00 10/20/25 08:35 0.9 % Sodium Chloride Flush 3 Ml Syringe IVFLUSH Not Given QSHIFT VIOLET Thiamine HCl 100 mg 10/20/25 09:00 10/20/25 08:44 Thiamine Hcl 100 Mg Tablet PO 100 mg DAILY VIOLET Administration Trazodone HCl 50 mg 10/20/25 01:14 10/20/25 01:24 Trazodone Hcl 50 Mg Tablet PO 50 mg BEDTIME PRN Administration Insomnia Medical Decision Making Medical Decision Making MDM Narrative: 30-year-old male with a history of PTSD, alcohol use disorder with prior alcohol withdrawal, presents with suicidal ideation. Per EMS, the patient's mother called for assistance to the home after the patient has been binge drinking for days. He typically consumes 0.5 gal of vodka and a pt of Meir Snow. The patient verbalized thoughts of self-harm to CHD in the community. History limited from the patient has he is clinically intoxicated. Problem: PTSD, alcohol use disorder with a prior withdrawal History: Per EMS primarily and patient's mother I have considered the following differential diagnoses: SI, HI, decompensated psychiatric illness, drug/alcohol intoxication Plan: Screening labs obtained including serum ethanol and drug screen, the patient will be referred to both the care team and the assistant women's soccer coach. We will monitor for signs of withdrawal, placing a CIWA scale I have independently reviewed the following tests: Labs, no leukocytosis, not anemic, no electrolyte abnormality, ethanol 369, drug screen only positive for barbiturates Differential Diagnosis Differential Diagnoses: The differential diagnosis associated with the presentation includes See MDM Admission/Observation Consideration of admission/observation: Escalation of care including admission/observation considered Unclear at this time if you requires medical admit, not exhibiting withdrawal symptoms Consult Healthcare Provider Management of the patient was discussed with: Behavioral Health Provider Care team and assistant women's soccer coach Lab Data MDM Lab Attestation statement: I reviewed the patient's lab results. 10/20/25 05:17 10/20/25 05:17 Labs: Lab Results 10/18/25 10/18/25 Range/Units 19:41 20:20 WBC 5.8 (4.8-10.8) X10*3/uL RBC 5.03 (4.60-5.80) X10*6/uL Hgb 14.5 (14.0-18.0) g/dl Hct 41.3 L (42.0-52.0) % MCV 82.1 (80.0-98.0) fL MCH 28.8 (27.0-33.0) pg MCHC 35.1 (31.0-36.0) g/dl RDW 13.2 (11.0-16.0) % Plt Count 355 D (160-400) X10*3/uL MPV 9.3 L (9.4-12.4) fL Immature Gran % (Auto) 1.2 H (0.0-0.4) % Neut % (Auto) 63.9 (45-73) % Lymph % (Auto) 25.4 (20-40) % Ida % (Auto) 8.5 (2-11) % Eos % (Auto) 0.0 (0-4) % Baso % (Auto) 1.0 (0-2) % Lymph # (Auto) 1.5 (1.2-4.9) X10*3/uL Ida # (Auto) 0.5 (0.1-1.2) X10*3/uL Eos # (Auto) 0.0 (0.0-0.4) X10*3/uL Baso # (Auto) 0.1 (0.0-0.2) X10*3/uL Abs Immat Gran (auto) 0.07 H (0.00-0.03) X10*3/uL Absolute Neuts (auto) 3.7 (2.0-8.3) x10*3/uL Absolute Nucleated RBC 0.000 (0.0-0.012) X10*3/uL Nucleated RBC % (auto) 0.0 (0.0-0.2) /100WBC Sodium 144 (135-145) mmol/L Potassium 3.6 (3.3-5.1) mmol/L Chloride 108 (96-108) mmol/L Carbon Dioxide 25 (22-29) mmol/L Anion Gap 15 (12-20) BUN 6 L (9-16) mg/dL Creatinine 0.64 (0.5-1.4) mg/dL Estim Creat Clear Calc 173.0 Estimated GFR > 60 Random Glucose 115 (60-115) mg/dL Calcium 8.7 (8.4-10.2) mg/dL Magnesium 1.9 (1.6-2.6) mg/dL Total Bilirubin 0.3 (0.0-1.0) mg/dL AST 28 (5-37) U/L ALT 29 (0-40) U/L Alkaline Phosphatase 103 (39-117) U/L Total Protein 7.3 (6.5-8.0) g/dL Albumin 4.6 (3.5-5.0) g/dL Urine Color Yellow Urine Appearance Clear Urine pH 7.5 (5.0-9.0) Ur Specific [place] <= 1.005 (1.005-1.025) Urine Protein Negative (Neg-Trace) mg/dL Urine Glucose (UA) Negative (Negative) mg/dL Urine Ketones Negative (Negative) mg/dL Urine Blood Negative (Negative) Urine Nitrite Negative (Negative) Ur Leukocyte Esterase Negative (Negative) Salicylates < 5.0 L (15-30) mg/dL Urine Opiates Screen Not Detected (Not Detect) Ur Buprenorphine Scrn Not Detected (Not Detect) ng/mL Ur Oxycodone Screen Not Detected (Not Detect) ng/mL Urine Methadone Screen Not Detected (Not Detect) ng/mL Urine Fentanyl Screen Not Detected (Not Detect) Ur Barbiturates Screen POSITIVE H (Not Detect) Ur Phencyclidine Scrn Not Detected (Not Detect) Ur Amphetamines Screen Not Detected (Not Detect) U Benzodiazepines Scrn Not Detected (Not Detect) Urine Cocaine Screen Not Detected (Not Detect) U Marijuana (THC) Screen Not Detected (Not Detect) Ethyl Alcohol 369 H* mg/dL Discharge Plan Discharge Clinical Impression: Suicidal ideation Alcoholic intoxication Qualifiers: Complication of substance-induced condition: with unspecified complication Q ualified Code(s): F10.929 - Alcohol use, unspecified with intoxication, unspecified Patient Disposition: Admitted As Inpatient Interventions: Admission Worksheet (ED) Last Done: 10/19/25 16:45 Discharge Date/Time: 10/19/25 17:39
[2025-10-19 02:49] LABS: Magnesium 1.9 mg/dL (1.6-2.6)
[2025-10-19] MEDS: PHENobarbitaL sodium 130 MG/ML IM ONCE 332 MG IM (03:13)
--- NOTE | 2025-10-19 03:21 | PC.NURSE ---
pt medicated per MAR.
[2025-10-19] MEDS: diazePAM 10 MG/2 ML CARTRIDGE 5 MG IVPUSH (03:50)
[2025-10-19] MEDS: Lactated Ringers 1,000 ML 999 ML IV (03:50)
[2025-10-19] MEDS: PHENobarbitaL sodium 130 MG/ML VIAL IM Q3Hx2 249 MG IM ×2 (06:03→08:00)
--- NOTE | 2025-10-19 06:06 | PC.NURSE ---
pt medicated per JAN, pt tolerated well. fluids running per JAN. 1:1 sitter at bedside.
--- NOTE | 2025-10-19 08:23 | PC.NURSE ---
This RN assumed care of patient @ 0700 Patient calm and cooperative Sitter in place CIWA =5 Patient requested medication for anxiety Notified provider, medicated patient per MAR, effectiveness pending Patient is planning on leaving AMA, mother is on her way to pick son up
--- NOTE | 2025-10-19 09:07 | PC.NURSE ---
Mother and brother came to visit Patient decided to stay at [facility] and be admitted Patient cleared by kevin gamnig has been removed
--- NOTE | 2025-10-19 09:38 | PM.IMHP ---
History of Present Illness Date of Service: 10/19/25 Attending physician on admission: Gilles Hernandez Chief Complaint: alcohol withdrawal This is a 30-year-old male who presents to the emergency department due to alcohol intoxication and suicidal ideation. Patient became hostile and belligerent requiring IV sedation, and physical restraint. Initial alcohol level 369. He reportedly has been making SI statements. Patient was kept in the emergency department overnight, eventually cleared by the care team for SI and sitter was removed. He then began displaying symptoms of alcohol withdrawal and was started on phenobarbital protocol. Patient reports binge drinking for the past 3 days however mother reports he has been drinking heavily for the past 6 months. She has brought him to [facility] Emergency room multiple times over the past 6 months and he was discharged from their emergency room yesterday. Patient initially declined to stay in the hospital but is now agreeable for admission. He reports chest pain which is constant in nature since onset at 03:00, he also reports nausea with no vomiting. He reports generally feeling ?terrible. Lab work largely unremarkable. Tox screen positive for barbiturates. Review of Systems Review of Systems: Yes all other systems are reviewed and are negative Constitutional: Constitutional: Denies chills and Denies fever(s) Cardiovascular: Cardiovascular: Reports chest pain, Denies palpitations and Denies dyspnea Respiratory: Respiratory: Denies dyspnea Gastrointestinal: Gastrointestinal: Reports abdominal pain, Reports nausea and Denies vomiting Endocrine: Endocrine: Denies palpitations [facility] Medical History Alcohol abuse Surgical History No pertinent past surgical history Social History (Updated 10/19/25 @ 10:25 by MELISA Mari) Household Members: Family Housing: House Do you presently have visiting nurse or other home services: No Unable to assess alcohol history related to: Unable to respond Alcohol intake: current Alcohol intake frequency: 3 or more drinks per day Alcohol type: hard liquor Patient Tobacco Use Status: Never used Tobacco Use of substances other than those prescribed or required for medical reasons: Unable to respond Advance Directives: No Advance Directives Information Provided: No service: Yes Current occupational status: employed Meds Allergies Allergy/AdvReac Type Severity Reaction Status Date / Time No Known Allergies Allergy Verified 10/18/25 19:28 Active Medications: Current Medications Acetaminophen (Acetaminophen 325 Mg Tablet) 650 mg PO Q6H PRN PRN Reason: Pain, Mild 1-3,fever,headache Calcium Carbonate (Calcium Carbonate 750 Mg Tab.Chew) 750 mg PO Q4H PRN PRN Reason: Heartburn Enoxaparin Sodium (Enoxaparin Sodium 40 Mg/0.4 Ml Syringe) 40 mg SUBCUT Q24H [facility] Famotidine (Famotidine/Pf 20 Mg/2 Ml Vial) 20 mg IVPUSH DAILY [facility] Folic Acid (Folic Acid 1 Mg Tablet) 1 mg PO DAILY [facility] Lactated Ringer's (Lr) 1,000 mls @ 125 mls/hr IVCONT .Q8H [facility] Magnesium Hydroxide (Milk Of Magnesia 30 Ml Oral.Susp) 30 ml PO DAILY PRN PRN Reason: Constipation Melatonin (Melatonin 3 Mg Tablet) 6 mg PO BEDTIME PRN PRN Reason: Insomnia Ondansetron HCl (Ondansetron Hcl 4 Mg/2 Ml Vial) 4 mg IVPUSH Q8H PRN PRN Reason: Nausea and Vomiting Pharmacy Consult (Consult Rx Etoh Phenob Im/Po) 1 each MISCELLANE ONCE PRN; Protocol PRN Reason: Consult order Phenobarbital (Phenobarbital 15 Mg Tablet) 45 mg PO BID@1000,2200 [facility]; Protocol Stop: 10/20/25 22:01 Phenobarbital (Phenobarbital 15 Mg Tablet) 15 mg PO BID [facility]; Protocol Stop: 10/22/25 21:01 Phenobarbital (Phenobarbital 15 Mg Tablet) 15 mg PO DAILY [facility]; Protocol Stop: 10/24/25 09:01 Sodium Chloride (0.9 % Sodium Chloride Flush 3 Ml Syringe) 3 ml IVFLUSH QSHIFT [facility] Thiamine HCl (Thiamine Hcl 100 Mg Tablet) 100 mg PO DAILY [facility] Physical Exam Vital Signs and Narrative: Vital Signs: Last Vital Signs Temp 98.7 F 10/19/25 02:23 Pulse 106 H 10/19/25 08:21 Resp 16 10/19/25 08:21 BP 117/67 10/19/25 08:21 Pulse Ox 96 10/19/25 08:21 O2 Del Method Room Air 10/19/25 08:21 BMI result Body Mass Index 29.9 Const: Other: tremulous General: alert and awake Nutritional Appearance: overweight Orientation/consciousness: patient oriented x3 Chest: Other: no pain with palpation Resp: Effort & Inspection: normal respiratory effort, no respiratory distress and no use of accessory muscles Cardio: Rate: tachycardic GI: Inspection: No distended Palpation (GI): Soft to palpation and nontender Neuro: General: patient oriented x3, moves all extremities and CN's II-XI intact bilaterally Extrem: General: No pedal edema Results Labs 10/18/25 20:20 10/18/25 20:20 Labs: Laboratory Results - last 24 hr 10/18/25 10/18/25 19:41 20:20 MCV 82.1 MCH 28.8 MCHC 35.1 RDW 13.2 Plt Count 355 D MPV 9.3 L Immature Gran % (Auto) 1.2 H Neut % (Auto) 63.9 Lymph % (Auto) 25.4 [place] % (Auto) 8.5 Eos % (Auto) 0.0 Baso % (Auto) 1.0 Lymph # (Auto) 1.5 [place] # (Auto) 0.5 Eos # (Auto) 0.0 Baso # (Auto) 0.1 Abs Immat Gran (auto) 0.07 H Absolute Neuts (auto) 3.7 Absolute Nucleated RBC 0.000 Nucleated RBC % (auto) 0.0 Anion Gap 15 Estim Creat Clear Calc 173.0 Estimated GFR > 60 Random Glucose 115 Calcium 8.7 Magnesium 1.9 Total Bilirubin 0.3 AST 28 ALT 29 Alkaline Phosphatase 103 Total Protein 7.3 Albumin 4.6 Urine Color Yellow Urine Appearance Clear Urine pH 7.5 Ur Specific [place] <= 1.005 Urine Protein Negative Urine Glucose (UA) Negative Urine Ketones Negative Urine Blood Negative Urine Nitrite Negative Ur Leukocyte Esterase Negative Salicylates < 5.0 L Urine Opiates Screen Not Detected Ur Buprenorphine Scrn Not Detected Ur Oxycodone Screen Not Detected Urine Methadone Screen Not Detected Urine Fentanyl Screen Not Detected Ur Barbiturates Screen POSITIVE H Ur Phencyclidine Scrn Not Detected Ur Amphetamines Screen Not Detected U Benzodiazepines Scrn Not Detected Urine Cocaine Screen Not Detected U Marijuana (THC) Screen Not Detected Ethyl Alcohol 369 H* Assessment and Plan (1) Alcohol abuse with withdrawal: Status: Acute Plan This is a 30-year-old male with a history of alcohol dependence who initially presented to the emergency department with alcohol intoxication and suicidal ideation now in alcohol withdrawal Alcohol dependence with acute alcohol withdrawal h/o etoh withdrawal seizures, seizure precautions continue on phenobarbitol protocol monitor CIWA thiamine, folic acid supplementation addiction medicine consultation etoh gastritis IV pepcid SI Occurred during acute alcohol intoxication, no longer making suicidal statements, cleared by care team Chest pain intitial ekg with some twave inversions tox screen negative for cocain given age, ACS less likely repeat EKG check troponin check CXR h/o PTSD med rec pending at the time of admission, unclear if patient on meds baseline dvt ppx - lovenox Patient will likely require 2 midnight stay in the hospital for management of alcohol withdrawal Quality Stroke Does the patient have a stroke diagnosis?: No VTE Prior VTE?: No VTE Risk Level:: Medical - moderate - high VTE Device Contraindication: N/A - Device Ordered VTE Drug Contraindication: N/A - Med Ordered
[2025-10-19 10:57] LABS: Troponin-I High Sensitivity < 2.7 ng/L (<3.5-35.0)
[2025-10-19] MEDS: Lactated Ringers 1,000 ML 125 ML IVCONT ×2 (11:23→19:48)
--- NOTE | 2025-10-19 12:24 | HO.ADDICT_ITS ---
History of Present Illness Date of Service: 10/19/2025 Chief Complaint: ETOH withdrawal Reason for Consult: AUD Sources of Information: patient interviewed and chart reviewed HPI Narrative: Patient is a 30 year old male with history of AUD medically admitted with acute alcohol withdrawal. Initially presented to ED with SI, and intoxicated. Required IM medications due to increasing agitation and aggression. Later seen by CARE team and cleared psychaitrically, however he had now developed alcohol withdrawal sx. Phenobarbital protocol initiated. Patient seen in ED, room 12. He is awake, alert, engaged in interview--however not feeling well, so questions kept to minimum. He states that he normally does not drink because this happens . Admission note states he has been drinking heavily for the last 6 months or so. Reports history of treatment around 2022 Denies any SERGIO, but stating that he wants to begin naltrexone, with goal of transitioning to vivitrol at the [place] [facility] [place] services. Denies any other substance use. He reports nausea, anxiety, chills, headache. Labs reviewed Review of Systems Constitutional: Reports as per HPI Diagnostics Vital Signs (24Hr): Vital Signs - 24 hr 10/18/25 19:10 10/18/25 22:01 10/19/25 01:37 Temperature 97.8 F Pulse Rate 87 96 99 Respiratory Rate 18 25 H 16 Blood Pressure 124/73 106/55 L 143/85 H Pulse Oximetry 97 92 97 Oxygen Delivery Method Room Air Room Air Room Air 10/19/25 02:23 10/19/25 05:51 10/19/25 08:21 Temperature 98.7 F Pulse Rate 101 H 106 H 106 H Respiratory Rate 19 16 16 Blood Pressure 150/73 H 117/67 117/67 Pulse Oximetry 94 96 96 Oxygen Delivery Method Room Air Room Air Room Air 10/19/25 12:18 Temperature 98.2 F Pulse Rate 81 Respiratory Rate 24 H Blood Pressure 112/71 Pulse Oximetry 95 Oxygen Delivery Method Room Air BMI result Body Mass Index 29.9 Labs 10/18/25 20:20 10/18/25 20:20 Labs: Laboratory Results - last 48 hr 10/18/25 10/18/25 10/19/25 19:41 20:20 10:20 WBC 5.8 RBC 5.03 Hgb 14.5 Hct 41.3 L MCV 82.1 MCH 28.8 MCHC 35.1 RDW 13.2 Plt Count 355 D MPV 9.3 L Immature Gran % (Auto) 1.2 H Neut % (Auto) 63.9 Lymph % (Auto) 25.4 [place] % (Auto) 8.5 Eos % (Auto) 0.0 Baso % (Auto) 1.0 Lymph # (Auto) 1.5 [place] # (Auto) 0.5 Eos # (Auto) 0.0 Baso # (Auto) 0.1 Abs Immat Gran (auto) 0.07 H Absolute Neuts (auto) 3.7 Absolute Nucleated RBC 0.000 Nucleated RBC % (auto) 0.0 Sodium 144 Potassium 3.6 Chloride 108 Carbon Dioxide 25 Anion Gap 15 BUN 6 L Creatinine 0.64 Estim Creat Clear Calc 173.0 Estimated GFR > 60 Random Glucose 115 Calcium 8.7 Magnesium 1.9 Total Bilirubin 0.3 AST 28 ALT 29 Alkaline Phosphatase 103 Troponin I High Sens < 2.7 Total Protein 7.3 Albumin 4.6 Urine Color Yellow Urine Appearance Clear Urine pH 7.5 Ur Specific [place] <= 1.005 Urine Protein Negative Urine Glucose (UA) Negative Urine Ketones Negative Urine Blood Negative Urine Nitrite Negative Ur Leukocyte Esterase Negative Salicylates < 5.0 L Urine Opiates Screen Not Detected Ur Buprenorphine Scrn Not Detected Ur Oxycodone Screen Not Detected Urine Methadone Screen Not Detected Urine Fentanyl Screen Not Detected Ur Barbiturates Screen POSITIVE H Ur Phencyclidine Scrn Not Detected Ur Amphetamines Screen Not Detected U Benzodiazepines Scrn Not Detected Urine Cocaine Screen Not Detected U Marijuana (THC) Screen Not Detected Ethyl Alcohol 369 H* Mental Status Exam Mental Status Exam Level of Consciousness: Awake and Appropriate Speech Pattern: Clear Thought Process: Intact Thought Content: positive for Intact Judgement: Good Medications Medications Current Medications Acetaminophen (Acetaminophen 325 Mg Tablet) 650 mg PO Q6H PRN PRN Reason: Pain, Mild 1-3,fever,headache Calcium Carbonate (Calcium Carbonate 750 Mg Tab.Chew) 750 mg PO Q4H PRN PRN Reason: Heartburn Enoxaparin Sodium (Enoxaparin Sodium 40 Mg/0.4 Ml Syringe) 40 mg SUBCUT Q24H [facility] Last Admin: 10/19/25 11:23 Dose: 40 mg Famotidine (Famotidine/Pf 20 Mg/2 Ml Vial) 20 mg IVPUSH DAILY [facility] Last Admin: 10/19/25 11:23 Dose: 20 mg Folic Acid (Folic Acid 1 Mg Tablet) 1 mg PO DAILY [facility] Lactated Ringer's (Lr) 1,000 mls @ 125 mls/hr IVCONT .Q8H [facility] Last Admin: 10/19/25 11:23 Dose: 125 mls/hr Magnesium Hydroxide (Milk Of Magnesia 30 Ml Oral.Susp) 30 ml PO DAILY PRN PRN Reason: Constipation Melatonin (Melatonin 3 Mg Tablet) 6 mg PO BEDTIME PRN PRN Reason: Insomnia Ondansetron HCl (Ondansetron Hcl 4 Mg/2 Ml Vial) 4 mg IVPUSH Q8H PRN PRN Reason: Nausea and Vomiting Last Admin: 10/19/25 12:09 Dose: 4 mg Pharmacy Consult (Consult Rx Etoh Phenob Im/Po) 1 each MISCELLANE ONCE [facility]; Protocol PRN Reason: Consult order Phenobarbital (Phenobarbital 15 Mg Tablet) 45 mg PO BID@1000,2200 [facility]; Protocol Stop: 10/20/25 22:01 Phenobarbital (Phenobarbital 15 Mg Tablet) 15 mg PO BID [facility]; Protocol Stop: 10/22/25 21:01 Phenobarbital (Phenobarbital 15 Mg Tablet) 15 mg PO DAILY [facility]; Protocol Stop: 10/24/25 09:01 Sodium Chloride (0.9 % Sodium Chloride Flush 3 Ml Syringe) [facility] Thiamine HCl (Thiamine Hcl 100 Mg Tablet) 100 mg PO DAILY [facility] Allergies Allergies Allergy/AdvReac Type Severity Reaction Status Date / Time No Known Allergies Allergy Verified 10/18/25 19:28 Assessment & Plan Assessment & Plan (1) Alcohol use disorder, severe, dependence: Status: Acute Code(s): F10.20 - Alcohol dependence, uncomplicated Assessment and Plan: * acute withdrawal--phenobarbital taper in place * PRN gabapentin for ongoing anxiety * 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 PMFSH Past Medical History Medical History Alcohol abuse Surgical History Surgical History No pertinent past surgical history Social History Social History (Updated 10/19/25 @ 10:25 by MELISA Mari) Household Members: Family Housing: House Do you presently have visiting nurse or other home services: No Unable to assess alcohol history related to: Unable to respond Alcohol intake: current Alcohol intake frequency: 3 or more drinks per day Alcohol type: hard liquor Patient Tobacco Use Status: Never used Tobacco Use of substances other than those prescribed or required for medical reasons: Unable to respond Advance Directives: No Advance Directives Information Provided: No service: Yes Current occupational status: employed
--- NOTE | 2025-10-19 13:24 | PHA.MEDREC ---
Pharmacy Consult ? Medication Reconciliation Pharmacy has completed the medication reconciliation.Spoke to patient and he states he has not been taking any medication. Also he has no recent claims history
[2025-10-19 14:09] LABS: Troponin-I High Sensitivity < 2.7 ng/L (<3.5-35.0)
--- NOTE | 2025-10-19 15:47 | PC.NURSE ---
Pt up to bathroom with steady gait
--- NOTE | 2025-10-19 16:41 | HO.NURTONUR ---
30 year old male presented to ED following binge drinking and concern for SI. Cleared by kevin at this point. Started on Phenobarb protocol for ETOH withdrawal. Hx of ETOH withdrawal seizures. At this time, pt awake and alert. VSS. Ambulatory with steady gait. LR infusing. On reg diet. Mother can be triggering factor for patient to escalate.
[2025-10-20 03:02] VITALS: BP 125/65; PULSE 76; RESP 16; TEMP 36.4; O2SAT 97
[2025-10-20] MEDS: Lactated Ringers 1,000 ML 125 ML IVCONT ×2 (03:13→10:33)
[2025-10-20 05:32] LABS: Hematocrit 36.7 % (42.0-52.0); Hemoglobin 12.8 g/dl (14.0-18.0); Mean Corpuscular HGB Conc 34.9 g/dl (31.0-36.0); Mean Corpuscular Hemoglobin 29.0 pg (27.0-33.0); Mean Corpuscular Volume 83.0 fL (80.0-98.0); NRBC Abs Auto 0.000 X10*3/uL (0.0-0.012); NRBC Pct Auto 0.0 /100WBC (0.0-0.2); Platelet Count 272 X10*3/uL (160-400); Red Blood Count 4.42 X10*6/uL (4.60-5.80); White Blood Count 5.6 X10*3/uL (4.8-10.8)
[2025-10-20 05:59] LABS: Anion Gap 12 (12-20); Blood Urea Nitrogen 4 mg/dL (9-16); Calcium 8.5 mg/dL (8.4-10.2); Carbon Dioxide 22 mmol/L (22-29); Chloride 107 mmol/L (96-108); Creatinine Clr Calc Pharmacy 165.9; Estimated Glomerular Filt Rate > 60; Magnesium 1.4 mg/dL (1.6-2.6); Potassium 3.2 mmol/L (3.3-5.1); Sodium 138 mmol/L (135-145)
[2025-10-20] MEDS: Magnesium Sulfate/H2O 2 GM/50 ML PIGGYBACK IV (06:05)
[2025-10-20 07:20] VITALS: BP 108/63; PULSE 58; RESP 16; TEMP 37; O2SAT 99
--- NOTE | 2025-10-20 08:11 | HO.PM.IMPN ---
Subjective Subjective Date of Service: 10/20/25 Interval History: alcohol withdrawals Review of Systems Review of Systems: Yes all other systems are reviewed and are negative Physical Exam Vital Signs: Vital Signs: Last Vital Signs Temp 98.6 F 10/20/25 07:20 Pulse 58 10/20/25 07:20 Resp 16 10/20/25 07:20 BP 108/63 10/20/25 07:20 Pulse Ox 99 10/20/25 07:20 O2 Del Method Room Air 10/20/25 07:20 BMI result Body Mass Index 30.1 Objective Data Active Medications Acetaminophen (Acetaminophen 325 Mg Tablet) 650 mg PO Q6H PRN PRN Reason: Pain, Mild 1-3,fever,headache Last Admin: 10/19/25 22:21 Dose: 650 mg Documented By: JESSICA Calcium Carbonate (Calcium Carbonate 750 Mg Tab.Chew) 750 mg PO Q4H PRN PRN Reason: Heartburn Enoxaparin Sodium (Enoxaparin Sodium 40 Mg/0.4 Ml Syringe) 40 mg SUBCUT Q24H [facility] Last Admin: 10/19/25 11:23 Dose: 40 mg Documented By: TORI Famotidine (Famotidine/Pf 20 Mg/2 Ml Vial) 20 mg IVPUSH DAILY [facility] Last Admin: 10/19/25 11:23 Dose: 20 mg Documented By: OTRI Folic Acid (Folic Acid 1 Mg Tablet) 1 mg PO DAILY [facility] Gabapentin (Gabapentin 100 Mg Capsule) 100 mg PO TID PRN PRN Reason: Anxiety Last Admin: 10/19/25 12:56 Dose: 100 mg Documented By: TORI Lactated Ringer's (Lr) 1,000 mls @ 125 mls/hr IVCONT .Q8H [facility] Last Admin: 10/20/25 03:13 Dose: 125 mls/hr Documented By: JESSICA Magnesium Sulfate (Magnesium Sulfate/H2o) 2 gm in 50 mls @ 50 mls/hr IV ONCE ONE Stop: 10/20/25 09:08 Magnesium Hydroxide (Milk Of Magnesia 30 Ml Oral.Susp) 30 ml PO DAILY PRN PRN Reason: Constipation Melatonin (Melatonin 3 Mg Tablet) 6 mg PO BEDTIME PRN PRN Reason: Insomnia Last Admin: 10/19/25 22:19 Dose: 6 mg Documented By: JESSICA Ondansetron HCl (Ondansetron Hcl 4 Mg/2 Ml Vial) 4 mg IVPUSH Q8H PRN PRN Reason: Nausea and Vomiting Last Admin: 10/19/25 12:09 Dose: 4 mg Documented By: TORI Pharmacy Consult (Consult Rx Etoh Phenob Im/Po) 1 each MISCELLANE ONCE [facility]; Protocol PRN Reason: Consult order Phenobarbital (Phenobarbital 15 Mg Tablet) 45 mg PO BID@1000,2200 [facility]; Protocol Stop: 10/20/25 22:01 Last Admin: 10/19/25 21:34 Dose: 45 mg Documented By: JESSICA Phenobarbital (Phenobarbital 15 Mg Tablet) 15 mg PO BID [facility]; Protocol Stop: 10/22/25 21:01 Phenobarbital (Phenobarbital 15 Mg Tablet) 15 mg PO DAILY [facility]; Protocol Stop: 10/24/25 09:01 Potassium Chloride (Potassium Chloride Er 20 Meq Tab.Er.Prt) 40 meq PO ONCE ONE Stop: 10/20/25 08:10 Sodium Chloride (0.9 % Sodium Chloride Flush 3 Ml Syringe) [facility] Last Admin: 10/20/25 01:09 Dose: Not Given Documented By: JESSICA Non-Admin Reason: IV Running Thiamine HCl (Thiamine Hcl 100 Mg Tablet) 100 mg PO DAILY [facility] Trazodone HCl (Trazodone Hcl 50 Mg Tablet) 50 mg PO BEDTIME PRN PRN Reason: Insomnia Last Admin: 10/20/25 01:24 Dose: 50 mg Documented By: JESSICA Labs 10/20/25 05:17 10/20/25 05:17 Labs: Laboratory Results - last 24 hr 10/19/25 10/19/25 10/20/25 10:20 13:26 05:17 MCV 83.0 MCH 29.0 MCHC 34.9 RDW 12.7 Plt Count 272 MPV 9.4 Absolute Nucleated RBC 0.000 Nucleated RBC % (auto) 0.0 Anion Gap 12 Estim Creat Clear Calc 165.9 Estimated GFR > 60 Random Glucose 163 H Calcium 8.5 Magnesium 1.4 L* Troponin I High Sens < 2.7 < 2.7 Assessment and Plan (1) Alcohol abuse with withdrawal: Status: Acute Plan 30-year-old male with a history of alcohol dependence who initially presented to the emergency department with alcohol intoxication and suicidal ideation now in alcohol withdrawal Alcohol dependence with acute alcohol withdrawal h/o etoh withdrawal seizures, seizure precautions continue on phenobarbitol protocol monitor CIWA thiamine, folic acid supplementation addiction medicine consultation Acute hypokalemia and hypomagnesemia: IV and p.o. replacement ordered etoh gastritis IV pepcid SI Occurred during acute alcohol intoxication, no longer making suicidal statements, cleared by care team Chest pain intitial ekg with some twave inversions tox screen negative for cocain given age, ACS less likely repeat EKG check troponin check CXR h/o PTSD med rec pending at the time of admission, unclear if patient on meds baseline dvt ppx - lovenox Quality Stroke Does the patient have a stroke diagnosis?: No VTE Prior VTE?: No VTE Risk Level:: Medical - moderate - high VTE Device Contraindication: N/A - Device Ordered VTE Drug Contraindication: N/A - Med Ordered
[2025-10-20] MEDS: Potassium Chloride ER 20 MEQ TAB.ER.PRT 40 MEQ PO (08:44)
--- NOTE | 2025-10-20 11:26 | MHC.CM.PN ---
PT LIVES WITH FRIEND GOES TO AA AND NA MEETING S HAS OWN RIDE HIOME WILL BE SEEN BY ADDICTION MEDICINE DC PLAN HOME
[2025-10-20 11:27] VITALS: BP 134/82; PULSE 78; RESP 20; TEMP 36.8; O2SAT 98
--- NOTE | 2025-10-20 12:27 | P.DS_ITS ---
DS: Providers Provider Date of Service: 10/20/25 Date of admission: 10/19/25 09:37 Date of discharge: 10/20/25 Primary care physician: Unknown Physician Consults: 10/18/25 20:16 ED Recovery Team Consult Stat Comment: Reason for consultation: binge drinking, family concerned sec12 by PD 10/18/25 20:21 ED CARE Team Crisis Consult Stat Comment: Reason for consultation: vague SI sec 12 10/19/25 09:33 Addiction Medicine Provider Routine Consulting Provider: Addiction Covering Reason for consultation: etoh dependence Has provider been notified: No Attending physician on discharge: Gilles Hernandez DS: Diagnosis Discharge Diagnosis (1) Alcohol abuse with withdrawal: Status: Acute DS: Summary Hospital Course Hospital Course: HPI:30-year-old male who presents to the emergency department due to alcohol intoxication and suicidal ideation. Patient became hostile and belligerent requiring IV sedation, and physical restraint. Initial alcohol level 369. He reportedly has been making SI statements. Patient was kept in the emergency department overnight, eventually cleared by the care team for SI and sitter was removed. He then began displaying symptoms of alcohol withdrawal and was started on phenobarbital protocol. Patient reports binge drinking for the past 3 days however mother reports he has been drinking heavily for the past 6 months. She has brought him to [facility] Emergency room multiple times over the past 6 months and he was discharged from their emergency room yesterday. Patient initially declined to stay in the hospital but is now agreeable for admission. He reports chest pain which is constant in nature since onset at 03:00, he also reports nausea with no vomiting. He reports generally feeling ?terrible. Lab work largely unremarkable. Tox screen positive for barbiturates. Hospital course: 30-year-old male with a history of alcohol dependence who initially presented to the emergency department with alcohol intoxication and suicidal ideation now in alcohol withdrawal: Started on phenobarb, CIWA protocol, thiamine folic acid- withdrawal somewhat improving still has ciwa 4-5, in addition found to have hypomagnesemia and hypokalemia IV magnesium and p.o. potassium ordered, initial EKG was has some t invesrion but repeated ekg seems improved ,troponins x2 negative : Today patient decided to leave AMA-risk of leaving against medical advice explained to him in detail including alcohol withdrawal worsening, seizure, aspiration including -he understand and alert oriented x3. Hypomagnesemia and hypokalemia-given IV and p.o. replacements, patient does not want to wait-as above leaving AMA-discussed with the him -risk of cardiac arrhythmias including (he understand risks and still wants to leave), if any new symptoms chest pain or palpitations or any new cardiac symptoms go to nearest emergency room for further evaluation. Monitor BMP and magnesium outpatient. In addition is abdominal ekg was initially-currently denies any cardiac symptoms, troponin negative, does not want to wait for any workup(risk of chest pain ,mi,cardiac arrhythmias including (he understand risks and still wants to leave). Patient was strongly advised to abstain from alcohol use. He could understand all the risks of leaving and still wants to go, staff witnessed conversation. strongly advised to go to nearest emergency room to seek medical help. plan: clonidine 0.1 mg bid prn as prescribed. Magnesium and potassium limited supply as prescribed given-patient is aware to get his labs checked outpatient. Famotidine for possible alcoholic gastritis. Thiamine and folic acid as prescribed. Further management as above. Assessment and plan coordination time spent 50 minutes. Time Attestation Total time managing care of this patient today: 50 mintues. Discharge Coordination Time (in mins): 50 min Quality: Safe Use of Opioids Does Pt have an Active Cancer Diagnosis on the Problem List?: No Quality: Stroke Does the patient have a stroke diagnosis?: No Physical Exam Exam: Exam: refused Vital Signs: Vital Signs: Last Vital Signs Temp 98.2 F 10/20/25 11:27 Pulse 78 10/20/25 11:27 Resp 20 10/20/25 11:27 BP 134/82 10/20/25 11:27 Pulse Ox 98 10/20/25 11:27 O2 Del Method Room Air 10/20/25 11:27 BMI result Body Mass Index 30.1 DS: Data Data Completed and Pending Labs on day of discharge: Laboratory Results - last 24 hr 10/19/25 10/20/25 13:26 05:17 WBC 5.6 RBC 4.42 L Hgb 12.8 L Hct 36.7 L MCV 83.0 MCH 29.0 MCHC 34.9 RDW 12.7 Plt Count 272 MPV 9.4 Absolute Nucleated RBC 0.000 Nucleated RBC % (auto) 0.0 Sodium 138 Potassium 3.2 L Chloride 107 Carbon Dioxide 22 Anion Gap 12 BUN 4 L Creatinine 0.67 Estim Creat Clear Calc 165.9 Estimated GFR > 60 Random Glucose 163 H Calcium 8.5 Magnesium 1.4 L* Troponin I High Sens < 2.7 Imaging Chest x-ray: My impression: cxr:No acute cardiopulmonary findings. Discharge Plan Discharge Anticipated Discharge Date/Time: 10/20/25 12:16 Patient Disposition: Left Against Medical Advice Discharge Diagnosis: alcohol withdrawals, hypomagnesemia, hypokalemia Referrals: Physician,Unknown J [Primary Care Provider, Medical] - 1 Week Discharge Medications: New magnesium oxide 400 mg (241.3 mg magnesium) Tablet 800 mg PO BID Qty: 40 0RF folic acid 1 mg Tablet 1 mg PO DAILY Qty: 30 0RF thiamine mononitrate (vit B1) 100 mg Tablet 100 mg PO DAILY Qty: 30 0RF potassium chloride 10 mEq capsule, extended release 10 meq PO DAILY Qty: 7 0RF clonidine HCl 0.1 mg tablet 0.1 mg PO BID PRN (Reason: alcohol withdrawal) Qty: 10 0RF famotidine 20 mg tablet 20 mg PO BEDTIME Qty: 30 0RF Discharge Orders: Discharge Order (Routine); Ordered 10/20/25 Ordered By: Gilles Hernandez Diet: Advance to usual diet Activity on Discharge: As tolerated Print Language: [place]i Care Plan Goals: Patient left AMA-risk of leaving against medical advice explained to him in detail including alcohol withdrawal worsening, seizure, aspiration including -he understand and alert oriented x3. He could understand all the risks of leaving and still wants to go, staff witnessed conversation. Hypomagnesemia and hypokalemia-given IV and p.o. replacements, patient does not want to wait-as above leaving AMA-discussed with the him -risk of cardiac arrhythmias including (he understand risks and still wants to leave), if any new symptoms chest pain or palpitations or any new cardiac symptoms go to nearest emergency room for further evaluation. Monitor BMP and magnesium outpatient. In addition is abdominal ekg was initially-currently denies any cardiac symptoms, troponin negative, does not want to wait for any workup(risk of chest pain ,mi,cardiac arrhythmias including (he understand risks and still wants to leave). Patient was strongly advised to abstain from alcohol use. strongly advised to go to nearest emergency room to seek medical help. Health Concerns: As above. Plan of Treatment: As above. Assessment: As above. Discharge Date/Time: 10/20/25 12:24
--- NOTE | 2025-10-20 12:35 | MHC.RECOVRN ---
Consult received by Addiction Medicine for pt with AUD. TW met with pt at approximately 930am to offer support, resources, and education. On approach pt was sitting in bed in no apparent distress, no diaphoresis or restlessness noted, respirations even and unlabored. Pt stated he is not interested in starting naltrexone and made a mistake , however he denies the need for recovery support or resources. Pt declined to participate in recovery assessment. TW left contact information for ACS Team should he change his mind.
--- NOTE | 2025-10-20 13:27 | MHC.CM.PN ---
PT LEFT AMA
== END 2025-10-20 12:24 | disposition left against medical advice (07) | DRG 894 ==
LOC: HO.ED 10-19 09:12 → HO.EDOVER 10-19 09:38 → HO.IMC 10-19 16:37
PROVIDERS: Physician Assistant Medical; Admitting Provider Physician Assistant Medical; Emergency Provider Student in an Organized Health Care Education/Training Program; Visit Provider Internal Medicine
DX: F10.239 Alcohol dependence with withdrawal, unspecified (principal); R45.851 Suicidal ideations; F10.229 Alcohol dependence with intoxication, unspecified; K29.20 Alcoholic gastritis without bleeding; F43.10 Post-traumatic stress disorder, unspecified; Y90.8 Blood alcohol level of 240 mg/100 ml or more; Z79.899 Other long term (current) drug therapy
CPT/HCPCS: 36415; 71046; 80048; 80053; 80179; 80307; 81003; 83735; 84484; 85025; 85027; 93005; 99285; J1308; J1630; J1650; J2250; J2405; J2560; J3360; J3475; J7120; S9485

== ENCOUNTER → 2025-10-18 19:35 | Outpatient (BNV) | payer OTHER, SELFPAY | PROVIDERS: Admitting Provider Physician Assistant Medical; Emergency Provider Student in an Organized Health Care Education/Training Program; Visit Provider Internal Medicine Cardiovascular Disease | DX: R07.9 Chest pain, unspecified (principal) | CPT/HCPCS: 93010 ==

== ENCOUNTER 2025-10-19 09:37 | Outpatient (BNV) | payer OTHER, SELFPAY | END 2025-10-19 10:30 | PROVIDERS: Admitting Provider Physician Assistant Medical; Emergency Provider Student in an Organized Health Care Education/Training Program; Visit Provider Radiology Diagnostic Radiology | DX: R07.9 Chest pain, unspecified (principal) | CPT/HCPCS: 71046 ==

== ENCOUNTER 2025-10-19 09:37 | Outpatient (BNV) | payer OTHER, SELFPAY | END 2025-10-19 09:43 | PROVIDERS: Admitting Provider Physician Assistant Medical; Emergency Provider Student in an Organized Health Care Education/Training Program; Visit Provider Internal Medicine Cardiovascular Disease | DX: R07.9 Chest pain, unspecified (principal) | CPT/HCPCS: 93010 ==

== ENCOUNTER → 2025-10-19 09:37 | Outpatient (BNV) | payer OTHER, SELFPAY | PROVIDERS: Admitting Provider Physician Assistant Medical; Emergency Provider Student in an Organized Health Care Education/Training Program; Visit Provider Physician Assistant Medical | DX: F10.139 Alcohol abuse with withdrawal, unspecified (principal) | CPT/HCPCS: 99223; 99239 ==

== ENCOUNTER → 2025-10-19 09:37 | Outpatient (BNV) | payer OTHER, SELFPAY | PROVIDERS: Admitting Provider Physician Assistant Medical; Emergency Provider Student in an Organized Health Care Education/Training Program; Visit Provider Nurse Practitioner Psychiatric/Mental Health | DX: F10.20 Alcohol dependence, uncomplicated (principal) | CPT/HCPCS: 99221 ==